=== PATIENT | male | born 1950 | race Caucasian/White ===

== ENCOUNTER 2016-05-15 21:05 | Inpatient (IN) | payer MEDICARE, OTHER ==
[~2016-05-15] VITALS: Ht 182.9 cm; Wt 131.5 kg
[2016-05-15] MEDS: HumaLOG INSULIN (NovoLOG) PER UNIT SC SCH (02:30)
[2016-05-15 22:00] LABS: BASO # 0.2 K/mm3 (0.0-0.2); BASO % 1.3 % (0.0-1.0); EOS # 0.1 K/mm3 (0.0-0.50); EOS % 0.8 % (0.0-3.0); LARGE UNSTAINED CELL # 0.2 K/mm3 (0.0-0.4); LARGE UNSTAINED CELL % 1.2 % (0.0-4.0); LYMPH # 1.4 K/mm3 (1.5-4.5); LYMPH % 8.7 % (24.0-44.0); MEAN CORPUSCULAR HEMOGLOBIN 30.2 pg (27.0-33.0); MEAN CORPUSCULAR HGB CONC 34.8 g/dl (32.0-36.5); MEAN CORPUSCULAR VOLUME 86.8 fl (80.0-96.0); NEUTROPHILS # 11.5 K/mm3 (1.8-7.7); NEUTROPHILS % 80.9 % (36.0-66.0); PLATELET COUNT, AUTOMATED 260 k/mm3 (150-450); RED CELL DISTRIBUTION WIDTH 13.1 % (11.5-14.5); WHITE BLOOD COUNT 14.2 K/mm3 (4.0-10.0)
[2016-05-15] MEDS ORDERED: MORPHINE 4 MG/ML 1ML SYRINGE As Ordered ONE ×2 (22:06→22:51)
[2016-05-15] MEDS ORDERED: ONDANSETRON 4MG/2ML VIAL (J2405) As Ordered ONE (22:06)
[2016-05-15] MEDS ORDERED: ACETAMINOPHEN 325 MG TAB As Ordered ONE (22:07)
[2016-05-15 22:19] LABS: ALBUMIN 3.8 GM/DL (3.2-5.2); ALBUMIN/GLOBULIN RATIO 1.15 (1.00-1.93); ALKALINE PHOSPHATASE 91 U/L (45-117); ALT/SGPT 21 U/L (12-78); ANION GAP 9 MEQ/L (8-16); AST/SGOT 13 U/L (15-37); BILIRUBIN,DIRECT 0.2 MG/DL (0.0-0.2); BILIRUBIN,TOTAL 0.7 MG/DL (0.2-1.0); BLOOD UREA NITROGEN 16 MG/DL (7-18); CALCIUM LEVEL 9.1 MG/DL (8.8-10.2); CARBON DIOXIDE LEVEL 28 MEQ/L (21-32); CHLORIDE LEVEL 101 MEQ/L (98-107); CREATININE FOR GFR 1.11 MG/DL (0.70-1.30); GLOMERULAR FILTRATION RATE > 60.0 (>49); GLUCOSE, FASTING 193 MG/DL (80-110); POTASSIUM SERUM 4.2 MEQ/L (3.5-5.1); SODIUM LEVEL 138 MEQ/L (136-145); TOTAL PROTEIN 7.1 GM/DL (6.4-8.2)
[2016-05-15] MEDS ORDERED: cefTRIAXone SOD 1 GM VIAL (J0696) As Ordered ONE (23:10)
[2016-05-15] MEDS ORDERED: QUIN40TA5 PO (23:44)
[2016-05-15] MEDS ORDERED: BYST10TA2 PO (23:44)
[2016-05-15] MEDS ORDERED: ASPI325T PO ×2 (23:44)
[2016-05-15] MEDS ORDERED: SITA50TAB PO (23:44)
[2016-05-15] MEDS ORDERED: ISOS30TA4 PO (23:44)
[2016-05-16] MEDS ORDERED: ONDANSETRON 4MG/2ML VIAL (J2405) IV PRN (00:15)
[2016-05-16] MEDS ORDERED: PERCOCET 5MG/325MG TAB PO PRN ×2 (00:15)
[2016-05-16] MEDS ORDERED: BISACODYL 5 MG TAB PO PRN (00:15)
[2016-05-16] MEDS ORDERED: GLUCOSE 4 GM CHEW TABLET PO PRN (00:45)
[2016-05-16] MEDS ORDERED: GLUCAGON FOR INJ 1 MG VIAL (J1610) SC PRN (00:45)
[2016-05-16] MEDS ORDERED: DEXTROSE 50% 50 ML SYRINGE IV PRN (00:45)
[2016-05-16] MEDS ORDERED: VANCOMYCIN HCL 1,000 MG, VIAL MATE ADAPTER 1 EACH in D5W 250 ML IV SCH (02:00)
[2016-05-16] MEDS ORDERED: VANCOMYCIN 1000 MG/20 ML VIAL (J3370) As Ordered ONE (02:44)
--- NOTE | 2016-05-16 03:20 | PHACANCOPD ---
PHARMACY VANCOMYCIN DOSING Pt Demographics Demographics Patient Age:66 , Weight: , Gender: male Adjusted Body Weight Date: 05/16/16, Adjusted Body Weight: [99.2] Kg Vancomycin Vancomycin indication: RT HEEL ABCESS Vancomycin Target Ranges: 15-20 mcg/ml Vancomycin Load Y/N: No Load Dose Date Time Vancomycin Load Dose: Date: Time: Vancomycin Dose Date: 05/16/16. Current Vancomycin Dose: [1 GM IV Q12H] Intermittent Dosing?: No Labs Labs Laboratory Tests 05/15/16 21:41 Red Blood Count 5.00, Mean Corpuscular Volume 86.8, Mean Corpuscular Hemoglobin 30.2, Mean Corpuscular Hemoglobin Concent 34.8, Red Cell Distribution Width 13.1 , Neutrophils (%) (Auto) 80.9 H, Lymphocytes (%) (Auto) 8.7 L, Monocytes (%) ( Auto) 7.0 H, Eosinophils (%) (Auto) 0.8, Basophils (%) (Auto) 1.3 H, Neutrophils # (Auto) 11.5 H, Lymphocytes # (Auto) 1.4 L, Monocytes # (Auto) 1.0 H, Eosinophils # (Auto) 0.1, Basophils # (Auto) 0.2 Micro Microbiology 05/15/16 Blood Culture, Received Pending 05/15/16 Blood Culture, Received Pending 05/15/16 Wound Culture, Received Pending Creatinine Clearance Date:05/16/16. Creatinine Clearance: [89.4]CALCULATED. Pending Labs VANCOMYCIN TROUGH ORDERED FOR 05/17@1900 Assessment and Plan Maintaining Current Dose?: Yes Reason for dose change: No Dose Change Pharmacist Note Pharmacist Note Date: 05/16/16. Pharmacist note:Treating rt heel abcess :ceftazidime 1 gm iv q8h, Vancomycin 1 GM@02,then 1 GM IV Q12H@08:trough ordered for 1900 05/17:will continue to monitor [facility] May 16, 2016 03:20
--- NOTE | 2016-05-16 04:37 | EDDOCDS ---
Nurse's Notes [facility] Name: Jose Lei Age: 66 yrs Sex: Male : 1950 Arrival Date: 05/15/2016 Time: 21:05 Bed Admit Hold Private MD: Malik Felix M.D. Diagnosis: Cutaneous abscess of right foot Presentation: 05/15 21:08 Presenting complaint: Patient states: that on Saturday he noticed some discoloration to ms18 his R heel. Today, pt presents with large discolored area on his heel, red and swollen around the discolored tissue. Hx diabetic. Adult Sepsis Screening: The patient does not have new or worsening altered mentation. Patient's respiratory rate is less than 22. Systolic blood pressure is greater than 100. Patient has a qSOFA score of 0- Negative Sepsis Screen. Suicide/Homicide risk assessment- the patient denies having any suicidal and/or homicidal ideations and does not present with any other emotional, behavioral or mental health complaints. Status: Patient is not a aircraft servicer or dependent. Transition of care: patient was not received from another setting of care. 21:08 Acuity: JESSICA Level 3 ms18 21:08 Method Of Arrival: Walkin/Carried/Asstd ms18 Triage Assessment: 21:13 General: Appears in no apparent distress, comfortable, Behavior is appropriate for age, ms18 cooperative. Pain: Location: lateral side of right heel and medial aspect of right heel Pain currently is 9 out of 10 on a pain scale. Neurological: Level of Consciousness is awake, alert, obeys commands, Oriented to person, place, time. Respiratory: No deficits noted. Derm: Skin is pink, warm & dry. Historical: - Allergies: no known allergies; - Home Meds: 1. Januvia 50 mg oral tab once daily 2. isosorbide mononitrate 30 mg Oral Tb24 1 tab once daily 3. quinapril 40 mg Oral tab 1 tab once daily 4. Bystolic 10 mg oral tab 1 tab once daily 5. aspirin 325 mg Oral tab 1 tab once daily - PMHx: Diabetes - NIDDM: controlled; Hypertension; [place]; - PSHx: Cardiac stents; Hernia repair; - Social history: Smoking status: Patient states was never smoker of tobacco. No barriers to communication noted, The patient speaks fluent Niuean. - Family history: Not pertinent. - : The pt / caregiver states he / she is not on anticoagulants. Home medication list is obtained from the patient. - Exposure Risk Screening:: None identified. Screenin:48 Screening information is obtained from the patient. Fall risk: No risks identified. tm5 Assistance ADL's: requires no assistance with activities of daily living. Abuse/DV Screen: The patient / caregiver reports he/she is: not in a situation that causes fear, pain or injury. Nutritional screening: No deficits noted. Advance Directives: There is no active DNR order. home support is adequate. Assessment: 21:48 General: Appears in no apparent distress, Behavior is appropriate for age, cooperative. tm5 Pain: Location: lateral side of right heel and medial aspect of right heel Pain currently is 9 out of 10 on a pain scale. Quality of pain is described as throbbing. Neurological: Level of Consciousness is awake, alert, Oriented to person, place, time. Respiratory: Airway is patent Respiratory effort is even, unlabored, Respiratory pattern is regular, symmetrical. Derm: Abscess located on lateral side of right heel and medial aspect of right heel is golf ball sized, has no drainage, is hot to touch, is raised, abscess is purple/bruise in color, no open areas, no drainage. 22:30 Reassessment: Patient appears in no apparent distress at this time. Patient states tm5 feeling better. Patient states symptoms have improved. per pt his pain is better at this time, resting on stretcher, no further complaints. 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 tm5 05/16 00:25 General: Appears in no apparent distress, comfortable, Behavior is appropriate for age, jmb cooperative, Patient laying on stretcher, appears comfortable. Patient voices no complaints at this time. . Neurological: Level of Consciousness is awake, alert, obeys commands, Oriented to person, place, time. Respiratory: Airway is patent Respiratory effort is even, unlabored, Respiratory pattern is regular, symmetrical. 01:19 General: Appears in no apparent distress, comfortable, Behavior is appropriate for age, jmb cooperative. Neurological: Level of Consciousness is awake, alert, obeys commands, Oriented to person, place, time. Respiratory: Airway is patent Respiratory effort is even, unlabored, Respiratory pattern is regular, symmetrical. 01:22 Reassessment: Patient appears in no apparent distress at this time. pt resting with tm5 eyes closed, resp easy, appears to be sleeping at this time . 02:45 General: Appears in no apparent distress, comfortable, Behavior is appropriate for age, nn1 cooperative. Respiratory: Airway is patent Respiratory effort is even, unlabored, Respiratory pattern is regular, symmetrical. Derm: Skin is pink, warm & dry. 03:17 General: Patient able to ambulate without assistance. Vancomycin infusing per admission nn1 orders. . 03:37 General: Appears in no apparent distress, comfortable, Behavior is appropriate for age, nn1 cooperative. Neurological: Level of Consciousness is awake, alert. Respiratory: Airway is patent Respiratory effort is even, unlabored, Respiratory pattern is regular, symmetrical. Derm: Skin is pink, warm & dry. 04:26 General: Admission nurse at bedside, patient up to peds in wheelchair. Neurological: nn1 Level of Consciousness is awake, alert, obeys commands, Oriented to person, place, time. Respiratory: Airway is patent Respiratory effort is even, unlabored, Respiratory pattern is regular, symmetrical. Derm: Skin is pink, warm & dry. Vital Signs: 05/15 21:06 BP 183 / 96; Pulse 93; Resp 18 S; Temp 100.1(O); Pulse Ox 95% on R/A; Weight 131.54 kg dd6 (R); Height 6 ft. 0 in. (182.88 cm) (R); 22:31 BP 178 / 92; Pulse 90; Resp 18; Pulse Ox 98% on R/A; Pain 7/10; tm5 22:54 Temp 99.3(O); tm5 23:15 BP 168 / 89; Pulse 88; Resp 20; Pulse Ox 98% on R/A; Pain 4/10; tm5 05/16 00:30 BP 162 / 78; Pulse 72; Resp 20 S; Pulse Ox 97% on R/A; Pain 2/10; tm5 02:59 BP 111 / 68; Pulse 58; Resp 18; Temp 97.3(O); Pulse Ox 95% on R/A; Pain 0/10; nn1 04:27 BP 117 / 83; Pulse 60; Resp 18; Pulse Ox 97% on R/A; Pain 0/10; nn1 05/15 21:06 Body Mass Index 39.33 (131.54 kg, 182.88 cm) dd6 Vitals: 05/15 21:06 Log In Time: May 15, 2016 at 21:04. dd6 ED Course: 21:06 Patient visited by Cosme Key PCA. dd6 21:06 Malik Felix is Private Physician. dd6 21:06 Patient moved to Waiting dd6 21:07 Patient moved to Pre RCE dd6 21:10 Triage Initiated ms18 21:14 Patient moved to Triage 3 ms18 21:18 Patient moved to Triage 1 ms18 21:25 [facility] ke 21:25 Patient visited by Merrill Rodriguez FNP. ke 21:25 Patient visited by Merrill Rodriguez FNP. ke 21:27 Patient moved to I [facility] 21:43 Liver Profile Sent. tm5 21:43 BMP Sent. tm5 21:43 CBC with Diff Sent. tm5 21:47 -Blood Culture Sent. tm5 21:48 Awaiting ED physician evaluation. tm5 21:48 The patient / caregiver is instructed regarding the plan of care and ED course. tm5 21:48 Inserted saline lock: 18 gauge in right antecubital area and blood collected. The tm5 patient tolerated the procedure well. Labs/Blood culture drawn. 21:53 BLOOD CULTURES Sent. tm5 21:54 Patient visited by Alexia Mcdaniel RN. tm5 21:54 Patient moved to radiology. tm5 22:00 Patient visited by Alexia Mcdaniel RN. tm5 22:00 Patient moved back from radiology. tm5 22:14 [facility] Payment Agreement was scanned into [employer] and attached to record. gjb 22:24 Patient visited by Merrill Rodriguez FNP. ke 22:30 Patient visited by Alexia Mcdaniel RN. tm5 23:06 Patient visited by Alexia Mcdaniel RN. tm5 23:06 Visited by SHANELLE Rodriguez. tm5 23:14 Wound Culture - Most Extremities Sent. tm5 23:18 Celina Salazar is Hospitalizing Provider. ke 23:39 Patient visited by Alexia Mcdaniel RN. tm5 23:39 Visited by Hospitalist at bedside for admission eval. tm5 23:58 Patient visited by Alexia Mcdaniel RN. tm5 05/16 00:00 Patient visited by Alexia Mcdaniel RN. tm5 00:01 Dressings: Kerlix X 1; 4X4s X 4; applied to lateral side of right heel and medial tm5 aspect of right heel. 01:19 Patient visited by Bridger Evans RN. jmb 01:43 Patient moved to 18 jmb 01:51 Patient visited by Alexia Mcdaniel RN. tm5 01:51 Report given to Gisela HERNANDEZ. tm5 02:34 Patient moved to Admit Hold sls1 03:19 No procedures done that require assistance. nn1 04:28 Patient visited by Jeffrey Johnson RN. nn1 Administered Medications: 05/15 22:02 Drug: NS 0.9% 1000 ml [sodium chloride 0.9 % intravenous solution] Route: IV; Rate: 100 tm5 mL/hr; Site: right antecubital; 22:12 Drug: Ondansetron 4 mg [ondansetron HCl 2 mg/mL intravenous solution (2 mL)] Route: tm5 IVP; Site: right antecubital; 22:31 Follow up: Response: Nausea is decreased; No Adverse Reaction tm5 22:12 Drug: morphine 4 mg [morphine 4 mg/mL intravenous cartridge (1 mL)] Route: IVP; Site: tm5 right antecubital; 22:31 Follow up: BP 178 / 92; Pulse 90 bpm; Resp 18 bpm; Pulse Ox 98% RA; Pain 7/10 Adult tm5 22:31 Follow up: Response: No Adverse Reaction; Pain is decreased tm5 22:12 Drug: Acetaminophen 975 mg [acetaminophen 325 mg tablet (3 tabs)] Route: PO; tm5 22:54 Follow up: Temp 99.3 Oral; Response: Temperature is decreased tm5 22:53 Drug: morphine 4 mg [morphine 4 mg/mL intravenous cartridge (1 mL)] Route: IVP; Site: tm5 right antecubital; 23:15 Follow up: BP 168 / 89; Pulse 88 bpm; Resp 20 bpm; Pulse Ox 98% RA; Pain 4/10 Adult; tm5 Response: No Adverse Reaction; Pain is decreased 23:14 Drug: cefTRIAXone 1 grams [ceftriaxone 1 gram solution for injection] Route: IVPB; tm5 Infused Over: 30 mins; Site: right antecubital; 23:45 Follow up: Response: No Adverse Reaction; IV Status: Completed infusion; IV Intake: [id number] Point of Care Testing: Blood Glucose: 05/16 02:35 Blood Glucose: 168 mg/dL; nn1 Ranges: Intake: 05/15 23:45 IV: 50.00ml; Total: 50.00ml. tm5 Order Results: Lab Order: CBC with Diff; SPEC'M 05/15/16 21:41 Test: WHITE BLOOD COUNT; Value: 14.2; Range: 4.0-10.0; Abnormal: Above high normal; Units: K/mm3; Status: F Test: RED BLOOD COUNT; Value: 5.00; Range: 4.30-6.10; Units: M/mm3; Status: F Test: HEMOGLOBIN; Value: 15.1; Range: 14.0-18.0; Units: g/dl; Status: F Test: HEMATOCRIT; Value: 43.4; Range: 42.0-52.0; Units: %; Status: F Test: MEAN CORPUSCULAR VOLUME; Value: 86.8; Range: 80.0-96.0; Units: fl; Status: F Test: MEAN CORPUSCULAR HEMOGLOBIN; Value: 30.2; Range: 27.0-33.0; Units: pg; Status: F Test: MEAN CORPUSCULAR HGB CONC; Value: 34.8; Range: 32.0-36.5; Units: g/dl; Status: F Test: RED CELL DISTRIBUTION WIDTH; Value: 13.1; Range: 11.5-14.5; Units: %; Status: F Test: PLATELET COUNT, AUTOMATED; Value: 260; Range: 150-450; Units: k/mm3; Status: F Test: NEUTROPHILS %; Value: 80.9; Range: 36.0-66.0; Abnormal: Above high normal; Units: %; Status: F Test: LYMPH %; Value: 8.7; Range: 24.0-44.0; Abnormal: Below low normal; Units: %; Status: F Test: MONO %; Value: 7.0; Range: 0.0-5.0; Abnormal: Above high normal; Units: %; Status: F Test: EOS %; Value: 0.8; Range: 0.0-3.0; Units: %; Status: F Test: BASO %; Value: 1.3; Range: 0.0-1.0; Abnormal: Above high normal; Units: %; Status: F Test: LARGE UNSTAINED CELL %; Value: 1.2; Range: 0.0-4.0; Units: %; Status: F Test: NEUTROPHILS #; Value: 11.5; Range: 1.8-7.7; Abnormal: Above high normal; Units: K/mm3; Status: F Test: LYMPH #; Value: 1.4; Range: 1.5-4.5; Abnormal: Below low normal; Units: K/mm3; Status: F Test: MONO #; Value: 1.0; Range: 0.0-0.8; Abnormal: Above high normal; Units: K/mm3; Status: F Test: EOS #; Value: 0.1; Range: 0.0-0.50; Units: K/mm3; Status: F Test: BASO #; Value: 0.2; Range: 0.0-0.2; Units: K/mm3; Status: F Test: LARGE UNSTAINED CELL #; Value: 0.2; Range: 0.0-0.4; Units: K/mm3; Status: F Lab Order: [facility]; [facility] 05/15/16 21:41 Test: GLUCOSE, FASTING; Value: 193; Range: 80-110; Abnormal: Above high normal; Units: MG/DL; Status: F Test: BLOOD UREA NITROGEN; Value: 16; Range: 7-18; Units: MG/DL; Status: F Test: CREATININE FOR GFR; Value: 1.11; Range: 0.70-1.30; Units: MG/DL; Status: F Test: GLOMERULAR FILTRATION RATE; Value: > 60.0; Range: >49; Status: F Test: SODIUM LEVEL; Value: 138; Range: 136-145; Units: MEQ/L; Status: F Test: POTASSIUM SERUM; Value: 4.2; Range: 3.5-5.1; Units: MEQ/L; Status: F Test: CHLORIDE LEVEL; Value: 101; Range: 98-107; Units: MEQ/L; Status: F Test: CARBON DIOXIDE LEVEL; Value: 28; Range: 21-32; Units: MEQ/L; Status: F Test: ANION GAP; Value: 9; Range: 8-16; Units: MEQ/L; Status: F Test: CALCIUM LEVEL; Value: 9.1; Range: 8.8-10.2; Units: MG/DL; Status: F Test Note: ; Units are mL/min/1.73 m2 Chronic Kidney Disease Staging per NKF: Stage I & II GFR >=60 Normal to Mildly Decreased Stage III GFR 30-59 Moderately Decreased Stage IV GFR 15-29 Severely Decreased Stage V GFR <15 Very Little GFR Left ESRD GFR <15 on ELECTRIC NEEDLE SPECIALIST Lab Order: Liver Profile; SPEC05/15/16 21:41 Test: AST/SGOT; Value: 13; Range: 15-37; Abnormal: Below low normal; Units: U/L; Status: F Test: ALT/SGPT; Value: 21; Range: 12-78; Units: U/L; Status: F Test: ALKALINE PHOSPHATASE; Value: 91; Range: 45-117; Units: U/L; Status: F Test: BILIRUBIN,TOTAL; Value: 0.7; Range: 0.2-1.0; Units: MG/DL; Status: F Test: BILIRUBIN,DIRECT; Value: 0.2; Range: 0.0-0.2; Units: MG/DL; Status: F Test: TOTAL PROTEIN; Value: 7.1; Range: 6.4-8.2; Units: GM/DL; Status: F Test: ALBUMIN; Value: 3.8; Range: 3.2-5.2; Units: GM/DL; Status: F Test: ALBUMIN/GLOBULIN RATIO; Value: 1.15; Range: 1.00-1.93; Status: F Lab Order: Fingerstick Blood Sugar; SPEC'05/16/16 02:26 Test: BEDSIDE GLUCOSE; Value: 165; Range: 80-115; Abnormal: Above high normal; Units: MG/DL; Status: F Outcome: 23:18 Decision to Hospitalize by Provider. 05/16 03:18 Admission hand-off: Report called to VALDEMAR Stoddard. nn1 03:19 Discharge Assessment: Patient awake, alert and oriented x 3. No cognitive and/or nn1 functional deficits noted. Patient verbalized understanding of disposition instructions. patient administered narcotics - yes. Patient was admitted to the hospital or transferred to another facility. The following High Risk Discharge criteria are identified: None. Admitted to Pediatrics accompanied by tech, via stretcher, with chart. Condition: stable. No special radiology studies were completed. Property :Personal belongings accompany Pt. 04:36 Patient left the ED. nn1 Signatures: Merrill Rodriguez, BREAKDOWN PERSON BREAKDOWN PERSON Cosme Vu PCA VALIDATION ARCHITECT dd6 Josefina Nunes, RN RN sls1 Princess Hoffmann,RN RN cj Bridger EvansRN RN Esther ToureRN RN ms18 Jeffrey JohnsonRN RN nn1 Armida Denny Tonya,RN RN tm5 MTDD
--- NOTE | 2016-05-16 04:37 | EDDOCDS ---
Physician Documentation [facility] Name: Jose Lei Age: 66 yrs Sex: Male : 1950 Arrival Date: 05/15/2016 Time: 21:05 Bed Admit Hold Private MD: Malik Felix M.D. Disposition: 05/15/16 23:18 Hospitalization ordered by Celina Salazar for Inpatient Admission. Preliminary diagnosis is Cutaneous abscess of right foot. - Bed requested for M PED. - Status is Inpatient Admission. nn1 - Condition is Stable. - Problem is new. - Symptoms are unchanged. Historical: - Allergies: no known allergies; - Home Meds: 1. Januvia 50 mg oral tab once daily 2. isosorbide mononitrate 30 mg Oral Tb24 1 tab once daily 3. quinapril 40 mg Oral tab 1 tab once daily 4. Bystolic 10 mg oral tab 1 tab once daily 5. aspirin 325 mg Oral tab 1 tab once daily - PMHx: Diabetes - NIDDM: controlled; Hypertension; [place]; - PSHx: Cardiac stents; Hernia repair; - Social history: Smoking status: Patient states was never smoker of tobacco. No barriers to communication noted, The patient speaks fluent Sami. - Family history: Not pertinent. - : The pt / caregiver states he / she is not on anticoagulants. Home medication list is obtained from the patient. - Exposure Risk Screening:: None identified. Vital Signs: 05/15 21:06 BP 183 / 96; Pulse 93; Resp 18 S; Temp 100.1(O); Pulse Ox 95% on R/A; Weight 131.54 kg dd6 / 290 lbs (R); Height 6 ft. 0 in. (182.88 cm) (R); 22:31 BP 178 / 92; Pulse 90; Resp 18; Pulse Ox 98% on R/A; Pain 7/10; tm5 22:54 Temp 99.3(O); tm5 23:15 BP 168 / 89; Pulse 88; Resp 20; Pulse Ox 98% on R/A; Pain 4/10; tm5 05/16 00:30 BP 162 / 78; Pulse 72; Resp 20 S; Pulse Ox 97% on R/A; Pain 2/10; tm5 02:59 BP 111 / 68; Pulse 58; Resp 18; Temp 97.3(O); Pulse Ox 95% on R/A; Pain 0/10; nn1 04:27 BP 117 / 83; Pulse 60; Resp 18; Pulse Ox 97% on R/A; Pain 0/10; nn1 05/15 21:06 Body Mass Index 39.33 (131.54 kg, 182.88 cm) dd6 MDM: 05/15 21:31 IV Saline Lock ordered. ke 21:31 -Blood Culture (Adults Only), peripheral from different site, or from device/port/PICC ke etc. if present ordered. 21:31 NS 0.9% 1000 ml IV at 100 mL/hr continuous ordered. ke 21:32 Foot, Complete Ordered. EDMS 21:32 CBC with Diff Ordered. EDMS 21:32 BMP Ordered. EDMS 21:32 Liver Profile Ordered. EDMS 21:32 -Blood Culture Ordered. EDMS 21:35 -Blood Culture (Adults Only), peripheral from different site, or from device/port/PICC ajs etc. if present complete. 21:39 BLOOD CULTURES Ordered. EDMS 22:04 Ondansetron 4 mg IVP once ordered. ke 22:05 morphine 4 mg IVP every 30 minutes; Document pain score/vitals after each dose (Hold if ke SBP < 90mmHg) x2 ordered. 22:05 Acetaminophen Tablet 975 mg PO once ordered. ke 22:05 CBC with Diff Reviewed. ke 22:14 [facility] Payment Agreement was scanned into [employer] and attached to record. gjb 22:15 Financial registration complete. gjb 22:48 BMP Reviewed. ke 22:48 Liver Profile Reviewed. ke 23:08 cefTRIAXone 1 grams IVPB once over 30 mins; dilute in 50mL of NS or D5W ordered. ke 23:09 Wound Culture - Most Extremities Ordered. EDMS 23:13 BED REQUEST+ADM ordered. EDMS 01 00:13 PHYSICAL THERAPY EVAL & TREAT ordered. EDMS 00:14 Admission / Observation Status ordered. EDMS 00:14 CONSISTENT CARBOHYDRATES ordered. EDMS 01:55 MRI FOOT WITHOUT CONTRAST Ordered. EDMS 02:34 Fingerstick Blood Sugar Ordered. EDMS Point of Care Testing: Blood Glucose: 02:35 Blood Glucose: 168 mg/dL; nn1 Ranges: Administered Medications: 05/15 22:02 Drug: NS 0.9% 1000 ml [sodium chloride 0.9 % intravenous solution] Route: IV; Rate: 100 tm5 mL/hr; Site: right antecubital; 22:12 Drug: Ondansetron 4 mg [ondansetron HCl 2 mg/mL intravenous solution (2 mL)] Route: tm5 IVP; Site: right antecubital; 22:31 Follow up: Response: Nausea is decreased; No Adverse Reaction tm5 22:12 Drug: morphine 4 mg [morphine 4 mg/mL intravenous cartridge (1 mL)] Route: IVP; Site: tm5 right antecubital; 22:31 Follow up: BP 178 / 92; Pulse 90 bpm; Resp 18 bpm; Pulse Ox 98% RA; Pain 7/10 Adult tm5 22:31 Follow up: Response: No Adverse Reaction; Pain is decreased tm5 22:12 Drug: Acetaminophen 975 mg [acetaminophen 325 mg tablet (3 tabs)] Route: PO; tm5 22:54 Follow up: Temp 99.3 Oral; Response: Temperature is decreased tm5 22:53 Drug: morphine 4 mg [morphine 4 mg/mL intravenous cartridge (1 mL)] Route: IVP; Site: tm5 right antecubital; 23:15 Follow up: BP 168 / 89; Pulse 88 bpm; Resp 20 bpm; Pulse Ox 98% RA; Pain 4/10 Adult; tm5 Response: No Adverse Reaction; Pain is decreased 23:14 Drug: cefTRIAXone 1 grams [ceftriaxone 1 gram solution for injection] Route: IVPB; tm5 Infused Over: 30 mins; Site: right antecubital; 23:45 Follow up: Response: No Adverse Reaction; IV Status: Completed infusion; IV Intake: [id number] Signatures: Dispatcher [employer] Rosi Lopez RN RN daMerrill Rivas, PROCESS ARTIST PROCESS ARTIST Patricia Shafer Mallory, RN RN ms18 Jeffrey Johnson RN RN tra1 Armida Denny Tonya, RN RN tm5 The chart was reviewed and I authenticate all verbal orders and agree with the evaluation and treatment provided.Attachments: 22:14 [facility] Payment Agreement gjloan MTDD
[2016-05-16 04:40] VITALS: BP 116/57
--- NOTE | 2016-05-16 05:28 | HPE ---
DATE OF ADMISSION: 05/16/2016 PRIMARY CARE PROVIDER: Dr. Malik Felix CHIEF COMPLAINT: Pain, swelling, and blister of the right heel. PAST MEDICAL HISTORY: 1. Diabetes. 2. Hypertension. 3. Hyperlipidemia. 4. Coronary artery disease with history of myocardial infarction (AK) and cardiac stents in the past. 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 He recently bought new shoes and plus some in-soles within the shoes which has some projections from the in-sole and has been using that for about three days and then for two days he noticed some discoloration of his right heel and this morning there was a large blister with discolored area of the heel and it was red an extremely painful, so he came to the emergency room for evaluation. In the emergency department (ED), he was found to have right heel abscess. The abscess was incised and drained in the emergency room. Surgery was consulted by ED physician. Patient was given ceftriaxone and then the hospitalist service was consulted for admission. The patient is being admitted to the hospitalist service for right heel abscess. PAST SURGICAL HISTORY: Hernia surgeries, inguinal and abdominal wall hernia. ALLERGIES: No known drug allergies. HOME MEDICATIONS: - aspirin 325 mg daily - Tylenol 650 mg by mouth three times a day as needed for pain - isosorbide mononitrate 30 mg by mouth daily - Bystolic 10 mg by mouth daily - quinapril 40 mg at bedtime - Januvia 50 mg by mouth daily SOCIAL HISTORY: Patient has never smoked, does not abuse alcohol or recreational drugs. FAMILY HISTORY: Not pertinent. REVIEW OF SYSTEMS: All 10-point review of systems are negative except as mentioned in history of present illness (HPI). PHYSICAL EXAMINATION: VITAL SIGNS: Blood pressure 168/89, pulse 88, respiratory rate 20, temperature 100.1, pulse oximetry 98% in room air. GENERAL: Patient is awake, alert, and oriented times three, lying down in bed in no acute distress. HEENT: Normocephalic, atraumatic. Moist mucous membranes. Anicteric eyes. CHEST: Clear to auscultation. CARDIOVASCULAR: S1, S2 regular. No rub, murmur, or gallop. ABDOMEN: Obese, soft, nontender. Bowel sounds present. EXTREMITIES: No edema. Both of the feet have extremely dry skin and very thick skin of the soles and the heels as well as the sides. LABORATORY DATA: WBC 14.2, hemoglobin 15, platelets 260. Sodium 138, potassium 4.2, chloride 101, bicarbonate 28, BUN 16, creatinine 1.1, glucose 193, calcium 9.1. Liver function tests are normal. Foot x-ray is pending. ASSESSMENT AND PLAN: 1. This is a 66-year-old male admitted for right heel abscess. Patient's abscess has been incised and drained. Cultures are pending. Blood cultures have also been ordered. Patient is started on ceftazidime and vancomycin to cover for both Pseudomonas and methicillin-resistant Staphylococcus aureus (MRSA). Patient may need MRI of the foot. Surgery to evaluate the patient. Patient may also benefit from podiatry evaluation. 2. Diabetes. Will continue with home medications, Januvia and also will order subcutaneous insulin with meals. 3. Hypertension. We will continue with nebivolol and quinapril. 4. Coronary artery disease. We will continue with beta katherine as well as isosorbide mononitrate. Patient is not on statin as he cannot tolerate it. 5. Deep vein thrombosis (DVT) prophylaxis has been ordered.
[2016-05-16] MEDS: cefTAZidime 1 GM in D5W MINI-BAG PLUS 100 ML IV SCH ×3 (06:51→21:39)
[2016-05-16 08:00] VITALS: BP 128/57
--- NOTE | 2016-05-16 08:18 | REP ---
Clinical: Pain and swelling rule out osteomyelitis. Technique: AP, lateral, bilateral oblique views of the right foot. Findings: Osseous structures are intact without acute fracture or dislocation. Mild age-related changes are noted. No osseous destruction or periosteal reaction is appreciated to suggest osteomyelitis by radiographic evaluation. No subcutaneous emphysema or radiodense foreign body. Impression: Mild age-related degenerative changes. No radiographic evidence for osteomyelitis. Signed by Andrew Olivera MD 05/16/2016 08:10 A
[2016-05-16] MEDS ORDERED: NEBIVOLOL 5 MG TAB (BYSTOLIC) PO SCH (09:00)
[2016-05-16] MEDS ORDERED: ISOSORBIDE MON. (IMDUR) 30 MG XR TAB PO SCH (09:00)
[2016-05-16] MEDS: VANCOMYCIN HCL 1,000 MG, VIAL MATE ADAPTER 1 EACH in D5W 250 ML IV SCH ×2 (09:20→20:32)
[2016-05-16] MEDS: ENOXAPARIN 40 MG/0.4 ML SYRINGE (J1650) SC SCH (09:20)
[2016-05-16] MEDS: SITagliptin 50 MG TAB (JANUVIA) PO SCH (09:24)
[2016-05-16] MEDS: SENOKOT S TAB PO SCH ×2 (09:24→21:40)
[2016-05-16] MEDS: ASPIRIN 325 MG TAB PO SCH (09:24)
[2016-05-16] MEDS: HumaLOG INSULIN (NovoLOG) PER UNIT SC SCH ×4 (09:25→21:00)
[2016-05-16 11:57] LABS: MEAN CORPUSCULAR HEMOGLOBIN 30.4 pg (27.0-33.0); MEAN CORPUSCULAR VOLUME 89.4 fl (80.0-96.0); RED CELL DISTRIBUTION WIDTH 12.3 % (11.5-14.5); WHITE BLOOD COUNT 9.8 K/mm3 (4.0-10.0)
[2016-05-16 12:20] LABS: ANION GAP 9 MEQ/L (8-16); BLOOD UREA NITROGEN 13 MG/DL (7-18); CALCIUM LEVEL 8.8 MG/DL (8.8-10.2); CARBON DIOXIDE LEVEL 28 MEQ/L (21-32); CHLORIDE LEVEL 102 MEQ/L (98-107); CREATININE FOR GFR 1.02 MG/DL (0.70-1.30); GLOMERULAR FILTRATION RATE > 60.0 (>49); GLUCOSE, FASTING 192 MG/DL (80-110); POTASSIUM SERUM 4.3 MEQ/L (3.5-5.1); SODIUM LEVEL 139 MEQ/L (136-145)
--- NOTE | 2016-05-16 15:02 | CR ---
DATE OF CONSULTATION: 05/16/2016 CONSULTATION REPORT FOR: Hospitalist service. REASON FOR CONSULTATION: Regarding possible right heel abscess. HISTORY OF PRESENT ILLNESS: Mr. Lei is a 66-year-old gentleman, diabetic, moderately obese, who presented himself to the emergency department last night with complaints of swelling on his right heel. He thinks it is probably from the ill-fitting prosthetic shoes that he is wearing. The swelling has been ongoing since over the weekend. It had been worsening with increasing pain, also having subjective fever. Thus, he presented to the emergency department (ED). In the emergency room, he was seen and worked up. He was being suspected to have an abscess. An x-ray was taken, not really showing much soft tissue swelling or evidence for osteomyelitis. I was contacted by the emergency room provider recommending incision and drainage of the area which was done. There are no reports on what came up but I suspect this will be serous. He was subsequently admitted under the hospitalist service, currently on antibiotics for a diabetic foot infection. ALLERGIES: No known drug allergies. MEDICATIONS: During this hospitalization include: - vancomycin 1 gram every 12 hours - ceftazidime 1 gram every eight hours PAST MEDICAL HISTORY: Reviewed. None pertinent. PAST SURGICAL HISTORY: Reviewed. None pertinent. REVIEW OF SYSTEMS: He was feeling well up until the weekend when he started having pain and swelling on his right heel. He reports subjective fevers. No ongoing weight loss. Denies any problems with vision or hearing. Denies any shortness of breath. Denies any chest pains. Denies any abdominal complaints, diarrhea, or constipation. He is diabetic. He denies polydipsia, polyphagia, or polyuria. He denies any claudication when walking. He denies any swelling on his leg. He denies any kidney problems. PHYSICAL EXAMINATION: The patient was seen. Vital signs on arrival last night at 2106, blood pressure 183/96, pulse rate of 93, respiratory rate of 18, temperature of 100.1, pulse oximetry 95% on room air. Weight is 131 kg, height is 182 cm, giving him a body mass index (BMI) of 39.3. Vitals this morning shows he is afebrile, temperature 99.2, pulse rate 59, respiratory rate of 18, blood pressure 128/57, 96% on room air. The patient was seen laying on the bed. He reports feeling much better since the incision and drainage was done. Examination of bilateral extremities show good pulses, mild edema on both extremities. The girth of both extremities looks the same. This is a patient able to rotate his ankles. He has a thickened callus and dry skin on the plantar area on both feet. Over the right heel, there is about a 5 cm area where there is a ruptured blister is noted. There is a small amount of erythema surrounding the rim of the blister. The soft tissue itself does not show any fullness. No tenderness on examination. LABORATORY DATA: Yesterday white cell count was 14.2, today it is 7.8, hemoglobin 13.1, hematocrit 38.6, platelets is 233. CRP has not been done. Electrolytes look normal. Fasting glucose was 192. Wound culture pending. Foot x-ray shows no evidence for osteomyelitis, mildly related degenerative changes. IMPRESSION: 1. Diabetes. 2. Right heel blister from localized trauma from an ill-fitting shoe. 2. Cellulitis. On examination, I do not really suspect a deep-seated soft tissue infection on him. It would appear much thicker and the examination more tender. There is no fullness that I could feel. It seems to me that this is more just a blister from a local irritation that probably may have gotten infected. He was febrile last night. His temperature has gone down mildly. He is on some broad-spectrum antibiotics for possible diabetic foot infection. Personally, I do not think that he needs an MRI. I do not think that there is any deep-seated infections. He may need antibiotics until at least he is 24 hours afebrile. I just recommend some local measures, place an Optifoam on the heel as a support. I suspect that underneath the blister the skin that was the blister this will heal and dry. He does have very dry skin with cracks on the skin. He probably will benefit from soaks and placement of a skin moisturizer once the wound has fully healed and dried. Right now, he can apply some moisturizer on the involved area of the plantar space. He is at risk for a diabetic foot infection from cracks on the skin. He will probably also need a podiatry referral as an outpatient. Right now, I do not see any need for surgical intervention. I will follow the patient intermittently while he is in the hospital.
[2016-05-16 16:00] VITALS: BP 85/47
[2016-05-16 17:34] VITALS: BP 96/52
[2016-05-16] MEDS ORDERED: QUINAPRIL 20 MG TAB PO SCH (21:00)
[2016-05-16 21:40] VITALS: BP 108/55
[2016-05-16 22:00] VITALS: BP 108/55
[2016-05-17 05:00] VITALS: BP 121/66
[2016-05-17] MEDS: cefTAZidime 1 GM in D5W MINI-BAG PLUS 100 ML IV SCH (05:47)
[2016-05-17 07:20] LABS: BASO % 0.6 % (0.0-1.0); EOS # 0.2 K/mm3 (0.0-0.50); EOS % 2.4 % (0.0-3.0); LARGE UNSTAINED CELL # 0.2 K/mm3 (0.0-0.4); LARGE UNSTAINED CELL % 2.6 % (0.0-4.0); LYMPH # 1.3 K/mm3 (1.5-4.5); LYMPH % 17.1 % (24.0-44.0); MEAN CORPUSCULAR HGB CONC 33.5 g/dl (32.0-36.5); MEAN CORPUSCULAR VOLUME 89.4 fl (80.0-96.0); MONO # 0.5 K/mm3 (0.0-0.8); MONO % 7.4 % (0.0-5.0); NEUTROPHILS # 5.1 K/mm3 (1.8-7.7); NEUTROPHILS % 69.9 % (36.0-66.0); PLATELET COUNT, AUTOMATED 248 k/mm3 (150-450); RED CELL DISTRIBUTION WIDTH 12.3 % (11.5-14.5); WHITE BLOOD COUNT 7.3 K/mm3 (4.0-10.0)
[2016-05-17 07:31] LABS: ANION GAP 6 MEQ/L (8-16); BLOOD UREA NITROGEN 14 MG/DL (7-18); CALCIUM LEVEL 8.8 MG/DL (8.8-10.2); CARBON DIOXIDE LEVEL 30 MEQ/L (21-32); CHLORIDE LEVEL 102 MEQ/L (98-107); CREATININE FOR GFR 0.97 MG/DL (0.70-1.30); GLOMERULAR FILTRATION RATE > 60.0 (>49); GLUCOSE, FASTING 161 MG/DL (80-110); POTASSIUM SERUM 3.8 MEQ/L (3.5-5.1); SODIUM LEVEL 138 MEQ/L (136-145)
[2016-05-17 08:00] VITALS: BP 119/73
[2016-05-17] MEDS: HumaLOG INSULIN (NovoLOG) PER UNIT SC SCH (09:38)
[2016-05-17] MEDS: VANCOMYCIN HCL 1,000 MG, VIAL MATE ADAPTER 1 EACH in D5W 250 ML IV SCH (09:39)
[2016-05-17] MEDS: ASPIRIN 325 MG TAB PO SCH (09:39)
[2016-05-17] MEDS: SENOKOT S TAB PO SCH (09:40)
[2016-05-17] MEDS: SITagliptin 50 MG TAB (JANUVIA) PO SCH (09:40)
[2016-05-17] MEDS: ENOXAPARIN 40 MG/0.4 ML SYRINGE (J1650) SC SCH (09:40)
[2016-05-17] MEDS ORDERED: DOXY-278 PO (09:49)
--- NOTE | 2016-05-17 18:27 | DSES ---
DATE OF ADMISSION: 05/16/2016 DATE OF DISCHARGE: 05/17/2016 DISCHARGE DIAGNOSIS: Right heel abscess. SECONDARY DIAGNOSES: 1. Type 2 diabetes. 2. Hypertension. 3. Dyslipidemia. 4. Coronary artery disease. HOSPITALIZATION COURSE: The patient is a 66-year-old man who had been wearing a new pair of orthotics in his shoes. 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 On the days following this, he progressively noticed swelling and pain in the right heel, which prompted him to present to the emergency room where he was diagnosed with a right heel abscess, which was incised and drained in the emergency room. The patient was seen in consultation by Dr. Erik Magallon of general surgery, who did not feel that there was concern for deeper tissue infection and as such the patient did not receive any MRI. He did have an x-ray that did not reveal any evidence of osteomyelitis. The patient was treated initially with antibiotics, but given that his cultures were negative after 24 hours, he was transitioned to oral antibiotics. His symptoms did improve following drainage and he remained afebrile for 24 hours. OBJECTIVE: Today, the patient reports that he feels significantly better. He would like to go home. He denied chest pain, fevers, chills, nausea, vomiting, or diarrhea. VITAL SIGNS: Temperature 96.7, pulse 61, respiratory rate 18, blood pressure 121/66, oxygen saturation 97% on room air. GENERAL: He is an obese, man who gets up to greet me as I entered the room. He is in no distress. HEENT: Cranial nerves II through XII are grossly intact. Moist mucous membranes. CARDIOVASCULAR EXAM: S1, S2 regular. RESPIRATORY EXAM: Clear. ABDOMINAL EXAMINATION: Obese but benign. EXTREMITIES: No clubbing, cyanosis or edema. The right heel appears to be effectively drained. No area of fluctuance. No surrounding erythema. Mild tenderness but tolerable. LABORATORY DATA: WBC 7.3, down from 14.2 at the time of admission. Hemoglobin 13.7, hematocrit 40.9, platelet count 248. Chemistry panel: Sodium 138, potassium 3.8, chloride 102, bicarbonate 30, BUN 14, creatinine 0.9. Microbiology: Blood cultures are negative thus far. Wound cultures negative thus far. The patient did have an x-ray of the foot, which revealed no radiographic evidence for osteomyelitis, mild age-related degenerative changes. ASSESSMENT AND PLAN: This is a 66-year-old man with a right heel abscess, status post incision and drainage. 1. Right foot abscess, status post incision and drainage. Cultures are thus far negative. At this time, the patient will be transitioned to oral doxycycline to complete an 8 day course, 100 mg by mouth twice a day. He is to followup with his primary care provider within 7 days. He should have referral to podiatry to followup regularly, as he does have poor nail care and significantly cracked skin. He is certainly at risk for future infections. 2. Type 2 diabetes. The patient is continued on his home medications. He will followup with his primary care provider. 3. Hypertension. The patient is continued on nebivolol and quinapril. 4. Coronary artery disease. The patient is continued on his beta katherine an d nitrate. He is not on a statin. He reportedly cannot tolerate this. He is not on an aspirin. 5. Deep vein thrombosis (DVT) prophylaxis. The patient was on Lovenox while in the hospital. DISPOSITION: The patient is being discharged home under the care of his . His clinical status is improved. He is to followup with his primary care provider in 7 days. He is to avoid prolonged use of his right heel. Diet is as prior to admission. He is to have a dry, sterile dressing. He is to return to the emergency room should his symptoms worsen and consider outpatient podiatry referral for chronic diabetic foot care. MEDICATIONS: At the time of discharge: - doxycycline 100 mg by mouth twice a day - aspirin 325 mg daily and 650 mg three times a day as needed for pain - isosorbide mononitrate extended release 30 mg daily - nebivolol 10 mg daily - quinapril 40 mg at night - Januvia 50 mg daily Greater than 30 minutes was spent organizing disposition.
--- NOTE | 2016-05-18 05:37 | EDDOCDS ---
Physician Documentation [facility] Name: Jose Lei Age: 66 yrs Sex: Male : 1950 Arrival Date: 05/15/2016 Time: 21:05 Bed Admit Hold Private MD: Malik Felix M.D. Disposition: 05/15/16 23:18 Hospitalization ordered by Celina Salazar for Inpatient Admission. Preliminary diagnosis is Cutaneous abscess of right foot. - Bed requested for M PED. - Status is Inpatient Admission. nn1 - Condition is Stable. - Problem is new. - Symptoms are unchanged. Historical: - Allergies: no known allergies; - Home Meds: 1. Januvia 50 mg oral tab once daily 2. isosorbide mononitrate 30 mg Oral Tb24 1 tab once daily 3. quinapril 40 mg Oral tab 1 tab once daily 4. Bystolic 10 mg oral tab 1 tab once daily 5. aspirin 325 mg Oral tab 1 tab once daily - PMHx: Diabetes - NIDDM: controlled; Hypertension; [place]; - PSHx: Cardiac stents; Hernia repair; - Social history: Smoking status: Patient states was never smoker of tobacco. No barriers to communication noted, The patient speaks fluent Turkmen. - Family history: Not pertinent. - : The pt / caregiver states he / she is not on anticoagulants. Home medication list is obtained from the patient. - Exposure Risk Screening:: None identified. Vital Signs: 05/15 21:06 BP 183 / 96; Pulse 93; Resp 18 S; Temp 100.1(O); Pulse Ox 95% on R/A; Weight 131.54 kg dd6 / 290 lbs (R); Height 6 ft. 0 in. (182.88 cm) (R); 22:31 BP 178 / 92; Pulse 90; Resp 18; Pulse Ox 98% on R/A; Pain 7/10; tm5 22:54 Temp 99.3(O); tm5 23:15 BP 168 / 89; Pulse 88; Resp 20; Pulse Ox 98% on R/A; Pain 4/10; tm5 05/16 00:30 BP 162 / 78; Pulse 72; Resp 20 S; Pulse Ox 97% on R/A; Pain 2/10; tm5 02:59 BP 111 / 68; Pulse 58; Resp 18; Temp 97.3(O); Pulse Ox 95% on R/A; Pain 0/10; nn1 04:27 BP 117 / 83; Pulse 60; Resp 18; Pulse Ox 97% on R/A; Pain 0/10; nn1 05/15 21:06 Body Mass Index 39.33 (131.54 kg, 182.88 cm) dd6 MDM: 05/15 21:31 IV Saline Lock ordered. ke 21:31 -Blood Culture (Adults Only), peripheral from different site, or from device/port/PICC ke etc. if present ordered. 21:31 NS 0.9% 1000 ml IV at 100 mL/hr continuous ordered. ke 21:32 Foot, Complete Ordered. EDMS 21:32 CBC with Diff Ordered. EDMS 21:32 BMP Ordered. EDMS 21:32 Liver Profile Ordered. EDMS 21:32 -Blood Culture Ordered. EDMS 21:35 -Blood Culture (Adults Only), peripheral from different site, or from device/port/PICC ajs etc. if present complete. 21:39 BLOOD CULTURES Ordered. EDMS 22:04 Ondansetron 4 mg IVP once ordered. ke 22:05 morphine 4 mg IVP every 30 minutes; Document pain score/vitals after each dose (Hold if ke SBP < 90mmHg) x2 ordered. 22:05 Acetaminophen Tablet 975 mg PO once ordered. ke 22:05 CBC with Diff Reviewed. ke 22:14 [facility] Payment Agreement was scanned into [employer] and attached to record. gjb 22:15 Financial registration complete. gjb 22:48 BMP Reviewed. ke 22:48 Liver Profile Reviewed. ke 23:08 cefTRIAXone 1 grams IVPB once over 30 mins; dilute in 50mL of NS or D5W ordered. ke 23:09 Wound Culture - Most Extremities Ordered. EDMS 23:13 BED REQUEST+ADM ordered. EDMS 05/16 00:13 PHYSICAL THERAPY EVAL & TREAT ordered. EDMS 00:14 Admission / Observation Status ordered. EDMS 00:14 CONSISTENT CARBOHYDRATES ordered. EDMS 01:55 MRI FOOT WITHOUT CONTRAST Ordered. EDMS 02:34 Fingerstick Blood Sugar Ordered. EDMS 11:04 T-Sheet-- Draft Copy was scanned into [employer] and attached to record. Point of Care Testing: Blood Glucose: 02:35 Blood Glucose: 168 mg/dL; nn1 Ranges: Administered Medications: 05/15 22:02 Drug: NS 0.9% 1000 ml [sodium chloride 0.9 % intravenous solution] Route: IV; Rate: 100 tm5 mL/hr; Site: right antecubital; 22:12 Drug: Ondansetron 4 mg [ondansetron HCl 2 mg/mL intravenous solution (2 mL)] Route: tm5 IVP; Site: right antecubital; 22:31 Follow up: Response: Nausea is decreased; No Adverse Reaction tm5 22:12 Drug: morphine 4 mg [morphine 4 mg/mL intravenous cartridge (1 mL)] Route: IVP; Site: tm5 right antecubital; 22:31 Follow up: BP 178 / 92; Pulse 90 bpm; Resp 18 bpm; Pulse Ox 98% RA; Pain 7/10 Adult tm5 22:31 Follow up: Response: No Adverse Reaction; Pain is decreased tm5 22:12 Drug: Acetaminophen 975 mg [acetaminophen 325 mg tablet (3 tabs)] Route: PO; tm5 22:54 Follow up: Temp 99.3 Oral; Response: Temperature is decreased tm5 22:53 Drug: morphine 4 mg [morphine 4 mg/mL intravenous cartridge (1 mL)] Route: IVP; Site: tm5 right antecubital; 23:15 Follow up: BP 168 / 89; Pulse 88 bpm; Resp 20 bpm; Pulse Ox 98% RA; Pain 4/10 Adult; tm5 Response: No Adverse Reaction; Pain is decreased 23:14 Drug: cefTRIAXone 1 grams [ceftriaxone 1 gram solution for injection] Route: IVPB; tm5 Infused Over: 30 mins; Site: right antecubital; 23:45 Follow up: Response: No Adverse Reaction; IV Status: Completed infusion; IV Intake: [id number] Signatures: Dispatcher [employer] EDMS Rosi Yoder RN RN Eda Damian, Aaron Reg Merrill Ferrer, FREIGHT RECEIVER FREIGHT RECEIVER Patricia Shafer Mallory, RN RN ms18 Jeffrey JohnsonRN RN nn1 Armida Denny b Alexia Mcdaniel RN RN tm5 The chart was reviewed and I authenticate all verbal orders and agree with the evaluation and treatment provided.Attachments: 22:14 [facility] [place] gjb 01/11 11:04 T-Sheet-- Draft Copy gb Chart Complete MTDD
--- NOTE | 2016-05-18 05:37 | EDDOCDS ---
Physician Documentation [facility] Name: Jose Lei Age: 66 yrs Sex: Male : 1950 Arrival Date: 05/15/2016 Time: 21:05 Bed Admit Hold Private MD: Malik Felix M.D. Disposition: 05/15/16 23:18 Hospitalization ordered by Celina Salazar for Inpatient Admission. Preliminary diagnosis is Cutaneous abscess of right foot. - Bed requested for M PED. - Status is Inpatient Admission. nn1 - Condition is Stable. - Problem is new. - Symptoms are unchanged. Historical: - Allergies: no known allergies; - Home Meds: 1. Januvia 50 mg oral tab once daily 2. isosorbide mononitrate 30 mg Oral Tb24 1 tab once daily 3. quinapril 40 mg Oral tab 1 tab once daily 4. Bystolic 10 mg oral tab 1 tab once daily 5. aspirin 325 mg Oral tab 1 tab once daily - PMHx: Diabetes - NIDDM: controlled; Hypertension; [place]; - PSHx: Cardiac stents; Hernia repair; - Social history: Smoking status: Patient states was never smoker of tobacco. No barriers to communication noted, The patient speaks fluent Slovenian. - Family history: Not pertinent. - : The pt / caregiver states he / she is not on anticoagulants. Home medication list is obtained from the patient. - Exposure Risk Screening:: None identified. Vital Signs: 05/15 21:06 BP 183 / 96; Pulse 93; Resp 18 S; Temp 100.1(O); Pulse Ox 95% on R/A; Weight 131.54 kg dd6 / 290 lbs (R); Height 6 ft. 0 in. (182.88 cm) (R); 22:31 BP 178 / 92; Pulse 90; Resp 18; Pulse Ox 98% on R/A; Pain 7/10; tm5 22:54 Temp 99.3(O); tm5 23:15 BP 168 / 89; Pulse 88; Resp 20; Pulse Ox 98% on R/A; Pain 4/10; tm5 05/16 00:30 BP 162 / 78; Pulse 72; Resp 20 S; Pulse Ox 97% on R/A; Pain 2/10; tm5 02:59 BP 111 / 68; Pulse 58; Resp 18; Temp 97.3(O); Pulse Ox 95% on R/A; Pain 0/10; nn1 04:27 BP 117 / 83; Pulse 60; Resp 18; Pulse Ox 97% on R/A; Pain 0/10; nn1 05/15 21:06 Body Mass Index 39.33 (131.54 kg, 182.88 cm) dd6 MDM: 05/15 21:31 IV Saline Lock ordered. ke 21:31 -Blood Culture (Adults Only), peripheral from different site, or from device/port/PICC ke etc. if present ordered. 21:31 NS 0.9% 1000 ml IV at 100 mL/hr continuous ordered. ke 21:32 Foot, Complete Ordered. EDMS 21:32 CBC with Diff Ordered. EDMS 21:32 BMP Ordered. EDMS 21:32 Liver Profile Ordered. EDMS 21:32 -Blood Culture Ordered. EDMS 21:35 -Blood Culture (Adults Only), peripheral from different site, or from device/port/PICC ajs etc. if present complete. 21:39 BLOOD CULTURES Ordered. EDMS 22:04 Ondansetron 4 mg IVP once ordered. ke 22:05 morphine 4 mg IVP every 30 minutes; Document pain score/vitals after each dose (Hold if ke SBP < 90mmHg) x2 ordered. 22:05 Acetaminophen Tablet 975 mg PO once ordered. ke 22:05 CBC with Diff Reviewed. ke 22:14 [facility] Payment Agreement was scanned into [employer] and attached to record. gjb 22:15 Financial registration complete. gjb 22:48 BMP Reviewed. ke 22:48 Liver Profile Reviewed. ke 23:08 cefTRIAXone 1 grams IVPB once over 30 mins; dilute in 50mL of NS or D5W ordered. ke 23:09 Wound Culture - Most Extremities Ordered. EDMS 23:13 BED REQUEST+ADM ordered. EDMS 05/16 00:13 PHYSICAL THERAPY EVAL & TREAT ordered. EDMS 00:14 Admission / Observation Status ordered. EDMS 00:14 CONSISTENT CARBOHYDRATES ordered. EDMS 01:55 MRI FOOT WITHOUT CONTRAST Ordered. EDMS 02:34 Fingerstick Blood Sugar Ordered. EDMS 11:04 T-Sheet-- Draft Copy was scanned into [employer] and attached to record. Point of Care Testing: Blood Glucose: 02:35 Blood Glucose: 168 mg/dL; nn1 Ranges: Administered Medications: 05/15 22:02 Drug: NS 0.9% 1000 ml [sodium chloride 0.9 % intravenous solution] Route: IV; Rate: 100 tm5 mL/hr; Site: right antecubital; 22:12 Drug: Ondansetron 4 mg [ondansetron HCl 2 mg/mL intravenous solution (2 mL)] Route: tm5 IVP; Site: right antecubital; 22:31 Follow up: Response: Nausea is decreased; No Adverse Reaction tm5 22:12 Drug: morphine 4 mg [morphine 4 mg/mL intravenous cartridge (1 mL)] Route: IVP; Site: tm5 right antecubital; 22:31 Follow up: BP 178 / 92; Pulse 90 bpm; Resp 18 bpm; Pulse Ox 98% RA; Pain 7/10 Adult tm5 22:31 Follow up: Response: No Adverse Reaction; Pain is decreased tm5 22:12 Drug: Acetaminophen 975 mg [acetaminophen 325 mg tablet (3 tabs)] Route: PO; tm5 22:54 Follow up: Temp 99.3 Oral; Response: Temperature is decreased tm5 22:53 Drug: morphine 4 mg [morphine 4 mg/mL intravenous cartridge (1 mL)] Route: IVP; Site: tm5 right antecubital; 23:15 Follow up: BP 168 / 89; Pulse 88 bpm; Resp 20 bpm; Pulse Ox 98% RA; Pain 4/10 Adult; tm5 Response: No Adverse Reaction; Pain is decreased 23:14 Drug: cefTRIAXone 1 grams [ceftriaxone 1 gram solution for injection] Route: IVPB; tm5 Infused Over: 30 mins; Site: right antecubital; 23:45 Follow up: Response: No Adverse Reaction; IV Status: Completed infusion; IV Intake: [id number] Signatures: Dispatcher [employer] EDMS Rosi Yoder RN RN Eda Damian, Aaron Reg Merrill Ferrer, COMPASS OPERATOR COMPASS OPERATOR Patricia Shafer Mallory, RN RN [id number] Jeffrey JohnsonRN RN nn1 Armida Denny b Alexia Mcdaniel RN RN tm5 The chart was reviewed and I authenticate all verbal orders and agree with the evaluation and treatment provided.Attachments: 22:14 [facility] [place] Agreement gjb 01/11 11:04 T-Sheet-- Draft Copy gb Chart Complete MTDD
--- NOTE | 2016-05-18 05:38 | EDDOCDS ---
Nurse's Notes [facility] Name: Jose Lei Age: 66 yrs Sex: Male : 1950 Arrival Date: 05/15/2016 Time: 21:05 Bed Admit Hold Private MD: Malik Felix M.D. Diagnosis: Cutaneous abscess of right foot Presentation: 05/15 21:08 Presenting complaint: Patient states: that on Saturday he noticed some discoloration to ms18 his R heel. Today, pt presents with large discolored area on his heel, red and swollen around the discolored tissue. Hx diabetic. Adult Sepsis Screening: The patient does not have new or worsening altered mentation. Patient's respiratory rate is less than 22. Systolic blood pressure is greater than 100. Patient has a qSOFA score of 0- Negative Sepsis Screen. Suicide/Homicide risk assessment- the patient denies having any suicidal and/or homicidal ideations and does not present with any other emotional, behavioral or mental health complaints. 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 Transition of care: patient was not received from another setting of care. 21:08 Acuity: JESSICA Level 3 ms18 21:08 Method Of Arrival: Walkin/Carried/Asstd ms18 Triage Assessment: 21:13 General: Appears in no apparent distress, comfortable, Behavior is appropriate for age, ms18 cooperative. Pain: Location: lateral side of right heel and medial aspect of right heel Pain currently is 9 out of 10 on a pain scale. Neurological: Level of Consciousness is awake, alert, obeys commands, Oriented to person, place, time. Respiratory: No deficits noted. Derm: Skin is pink, warm & dry. Historical: - Allergies: no known allergies; - Home Meds: 1. Januvia 50 mg oral tab once daily 2. isosorbide mononitrate 30 mg Oral Tb24 1 tab once daily 3. quinapril 40 mg Oral tab 1 tab once daily 4. Bystolic 10 mg oral tab 1 tab once daily 5. aspirin 325 mg Oral tab 1 tab once daily - PMHx: Diabetes - NIDDM: controlled; Hypertension; SD; - PSHx: Cardiac stents; Hernia repair; - Social history: Smoking status: Patient states was never smoker of tobacco. No barriers to communication noted, The patient speaks fluent Barbadian. - Family history: Not pertinent. - : The pt / caregiver states he / she is not on anticoagulants. Home medication list is obtained from the patient. - Exposure Risk Screening:: None identified. Screenin:48 Screening information is obtained from the patient. Fall risk: No risks identified. tm5 Assistance ADL's: requires no assistance with activities of daily living. Abuse/DV Screen: The patient / caregiver reports he/she is: not in a situation that causes fear, pain or injury. Nutritional screening: No deficits noted. Advance Directives: There is no active DNR order. home support is adequate. Assessment: 21:48 General: Appears in no apparent distress, Behavior is appropriate for age, cooperative. tm5 Pain: Location: lateral side of right heel and medial aspect of right heel Pain currently is 9 out of 10 on a pain scale. Quality of pain is described as throbbing. Neurological: Level of Consciousness is awake, alert, Oriented to person, place, time. Respiratory: Airway is patent Respiratory effort is even, unlabored, Respiratory pattern is regular, symmetrical. Derm: Abscess located on lateral side of right heel and medial aspect of right heel is golf ball sized, has no drainage, is hot to touch, is raised, abscess is purple/bruise in color, no open areas, no drainage. 22:30 Reassessment: Patient appears in no apparent distress at this time. Patient states tm5 feeling better. Patient states symptoms have improved. per pt his pain is better at this time, resting on stretcher, no further complaints. 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 tm5 05/16 00:25 General: Appears in no apparent distress, comfortable, Behavior is appropriate for age, jmb cooperative, Patient laying on stretcher, appears comfortable. Patient voices no complaints at this time. . Neurological: Level of Consciousness is awake, alert, obeys commands, Oriented to person, place, time. Respiratory: Airway is patent Respiratory effort is even, unlabored, Respiratory pattern is regular, symmetrical. 01:19 General: Appears in no apparent distress, comfortable, Behavior is appropriate for age, jmb cooperative. Neurological: Level of Consciousness is awake, alert, obeys commands, Oriented to person, place, time. Respiratory: Airway is patent Respiratory effort is even, unlabored, Respiratory pattern is regular, symmetrical. 01:22 Reassessment: Patient appears in no apparent distress at this time. pt resting with tm5 eyes closed, resp easy, appears to be sleeping at this time . 02:45 General: Appears in no apparent distress, comfortable, Behavior is appropriate for age, nn1 cooperative. Respiratory: Airway is patent Respiratory effort is even, unlabored, Respiratory pattern is regular, symmetrical. Derm: Skin is pink, warm & dry. 03:17 General: Patient able to ambulate without assistance. Vancomycin infusing per admission nn1 orders. . 03:37 General: Appears in no apparent distress, comfortable, Behavior is appropriate for age, nn1 cooperative. Neurological: Level of Consciousness is awake, alert. Respiratory: Airway is patent Respiratory effort is even, unlabored, Respiratory pattern is regular, symmetrical. Derm: Skin is pink, warm & dry. 04:26 General: Admission nurse at bedside, patient up to peds in wheelchair. Neurological: nn1 Level of Consciousness is awake, alert, obeys commands, Oriented to person, place, time. Respiratory: Airway is patent Respiratory effort is even, unlabored, Respiratory pattern is regular, symmetrical. Derm: Skin is pink, warm & dry. Vital Signs: 05/15 21:06 BP 183 / 96; Pulse 93; Resp 18 S; Temp 100.1(O); Pulse Ox 95% on R/A; Weight 131.54 kg dd6 (R); Height 6 ft. 0 in. (182.88 cm) (R); 22:31 BP 178 / 92; Pulse 90; Resp 18; Pulse Ox 98% on R/A; Pain 7/10; tm5 22:54 Temp 99.3(O); tm5 23:15 BP 168 / 89; Pulse 88; Resp 20; Pulse Ox 98% on R/A; Pain 4/10; tm5 05/16 00:30 BP 162 / 78; Pulse 72; Resp 20 S; Pulse Ox 97% on R/A; Pain 2/10; tm5 02:59 BP 111 / 68; Pulse 58; Resp 18; Temp 97.3(O); Pulse Ox 95% on R/A; Pain 0/10; nn1 04:27 BP 117 / 83; Pulse 60; Resp 18; Pulse Ox 97% on R/A; Pain 0/10; nn1 05/15 21:06 Body Mass Index 39.33 (131.54 kg, 182.88 cm) dd6 Vitals: 05/15 21:06 Log In Time: May 15, 2016 at 21:04. dd6 ED Course: 21:06 Patient visited by Cosme Key PCA. dd6 21:06 Malik Felix is Private Physician. dd6 21:06 Patient moved to Waiting dd6 21:07 Patient moved to Pre RCE dd6 21:10 Triage Initiated ms18 21:14 Patient moved to Triage 3 ms18 21:18 Patient moved to Triage 1 ms18 21:25 [facility] ke 21:25 Patient visited by Merrill Rodriguez FNP. ke 21:25 Patient visited by Merrill Rodriguez FNP. ke 21:27 Patient moved to [facility] 21:43 Liver Profile Sent. tm5 21:43 BMP Sent. tm5 21:43 CBC with Diff Sent. tm5 21:47 -Blood Culture Sent. tm5 21:48 Awaiting ED physician evaluation. tm5 21:48 The patient / caregiver is instructed regarding the plan of care and ED course. tm5 21:48 Inserted saline lock: 18 gauge in right antecubital area and blood collected. The tm5 patient tolerated the procedure well. Labs/Blood culture drawn. 21:53 BLOOD CULTURES Sent. tm5 21:54 Patient visited by Alexia Mcdaniel RN. tm5 21:54 Patient moved to radiology. tm5 22:00 Patient visited by Alexia Mcdaniel RN. tm5 22:00 Patient moved back from radiology. tm5 22:14 [facility] Payment Agreement was scanned into [employer] and attached to record. gjb 22:24 Patient visited by Merrill Rodriguez FNP. ke 22:30 Patient visited by Alexia Mcdaniel RN. tm5 23:06 Patient visited by Alexia Mcdaniel RN. tm5 23:06 Visited by SHANELLE Rodriguez. tm5 23:14 Wound Culture - Most Extremities Sent. tm5 23:18 Celina Salazar is Hospitalizing Provider. ke 23:39 Patient visited by Alexia Mcdaniel RN. tm5 23:39 Visited by Hospitalist at bedside for admission eval. tm5 23:58 Patient visited by Alexia Mcdaniel RN. tm5 05/16 00:00 Patient visited by Alexia Mcdaniel RN. tm5 00:01 Dressings: Kerlix X 1; 4X4s X 4; applied to lateral side of right heel and medial tm5 aspect of right heel. 01:19 Patient visited by Bridger Evans RN. jmb 01:43 Patient moved to 18 jmb 01:51 Patient visited by Alexia Mcdaniel RN. tm5 01:51 Report given to Gisela HERNANDEZ. tm5 02:34 Patient moved to Admit Hold sls1 03:19 No procedures done that require assistance. nn1 04:28 Patient visited by Jeffrey Johnson RN. nn1 11:04 T-Sheet-- Draft Copy was scanned into [employer] and attached to record. gb Administered Medications: 05/15 22:02 Drug: NS 0.9% 1000 ml [sodium chloride 0.9 % intravenous solution] Route: IV; Rate: 100 tm5 mL/hr; Site: right antecubital; 22:12 Drug: Ondansetron 4 mg [ondansetron HCl 2 mg/mL intravenous solution (2 mL)] Route: tm5 IVP; Site: right antecubital; 22:31 Follow up: Response: Nausea is decreased; No Adverse Reaction tm5 22:12 Drug: morphine 4 mg [morphine 4 mg/mL intravenous cartridge (1 mL)] Route: IVP; Site: tm5 right antecubital; 22:31 Follow up: BP 178 / 92; Pulse 90 bpm; Resp 18 bpm; Pulse Ox 98% RA; Pain 7/10 Adult tm5 22:31 Follow up: Response: No Adverse Reaction; Pain is decreased tm5 22:12 Drug: Acetaminophen 975 mg [acetaminophen 325 mg tablet (3 tabs)] Route: PO; tm5 22:54 Follow up: Temp 99.3 Oral; Response: Temperature is decreased tm5 22:53 Drug: morphine 4 mg [morphine 4 mg/mL intravenous cartridge (1 mL)] Route: IVP; Site: tm5 right antecubital; 23:15 Follow up: BP 168 / 89; Pulse 88 bpm; Resp 20 bpm; Pulse Ox 98% RA; Pain 4/10 Adult; tm5 Response: No Adverse Reaction; Pain is decreased 23:14 Drug: cefTRIAXone 1 grams [ceftriaxone 1 gram solution for injection] Route: IVPB; tm5 Infused Over: 30 mins; Site: right antecubital; 23:45 Follow up: Response: No Adverse Reaction; IV Status: Completed infusion; IV Intake: [id number] Point of Care Testing: Blood Glucose: 05/16 02:35 Blood Glucose: 168 mg/dL; nn1 Ranges: Intake: 05/15 23:45 IV: 50.00ml; Total: 50.00ml. tm5 Order Results: Lab Order: CBC with Diff; SPEC'M 05/15/16 21:41 Test: WHITE BLOOD COUNT; Value: 14.2; Range: 4.0-10.0; Abnormal: Above high normal; Units: K/mm3; Status: F Test: RED BLOOD COUNT; Value: 5.00; Range: 4.30-6.10; Units: M/mm3; Status: F Test: HEMOGLOBIN; Value: 15.1; Range: 14.0-18.0; Units: g/dl; Status: F Test: HEMATOCRIT; Value: 43.4; Range: 42.0-52.0; Units: %; Status: F Test: MEAN CORPUSCULAR VOLUME; Value: 86.8; Range: 80.0-96.0; Units: fl; Status: F Test: MEAN CORPUSCULAR HEMOGLOBIN; Value: 30.2; Range: 27.0-33.0; Units: pg; Status: F Test: MEAN CORPUSCULAR HGB CONC; Value: 34.8; Range: 32.0-36.5; Units: g/dl; Status: F Test: RED CELL DISTRIBUTION WIDTH; Value: 13.1; Range: 11.5-14.5; Units: %; Status: F Test: PLATELET COUNT, AUTOMATED; Value: 260; Range: 150-450; Units: k/mm3; Status: F Test: NEUTROPHILS %; Value: 80.9; Range: 36.0-66.0; Abnormal: Above high normal; Units: %; Status: F Test: LYMPH %; Value: 8.7; Range: 24.0-44.0; Abnormal: Below low normal; Units: %; Status: F Test: MONO %; Value: 7.0; Range: 0.0-5.0; Abnormal: Above high normal; Units: %; Status: F Test: EOS %; Value: 0.8; Range: 0.0-3.0; Units: %; Status: F Test: BASO %; Value: 1.3; Range: 0.0-1.0; Abnormal: Above high normal; Units: %; Status: F Test: LARGE UNSTAINED CELL %; Value: 1.2; Range: 0.0-4.0; Units: %; Status: F Test: NEUTROPHILS #; Value: 11.5; Range: 1.8-7.7; Abnormal: Above high normal; Units: K/mm3; Status: F Test: LYMPH #; Value: 1.4; Range: 1.5-4.5; Abnormal: Below low normal; Units: K/mm3; Status: F Test: MONO #; Value: 1.0; Range: 0.0-0.8; Abnormal: Above high normal; Units: K/mm3; Status: F Test: EOS #; Value: 0.1; Range: 0.0-0.50; Units: K/mm3; Status: F Test: BASO #; Value: 0.2; Range: 0.0-0.2; Units: K/mm3; Status: F Test: LARGE UNSTAINED CELL #; Value: 0.2; Range: 0.0-0.4; Units: K/mm3; Status: F Lab Order: [facility]; [facility] 05/15/16 21:41 Test: GLUCOSE, FASTING; Value: 193; Range: 80-110; Abnormal: Above high normal; Units: MG/DL; Status: F Test: BLOOD UREA NITROGEN; Value: 16; Range: 7-18; Units: MG/DL; Status: F Test: CREATININE FOR GFR; Value: 1.11; Range: 0.70-1.30; Units: MG/DL; Status: F Test: GLOMERULAR FILTRATION RATE; Value: > 60.0; Range: >49; Status: F Test: SODIUM LEVEL; Value: 138; Range: 136-145; Units: MEQ/L; Status: F Test: POTASSIUM SERUM; Value: 4.2; Range: 3.5-5.1; Units: MEQ/L; Status: F Test: CHLORIDE LEVEL; Value: 101; Range: 98-107; Units: MEQ/L; Status: F Test: CARBON DIOXIDE LEVEL; Value: 28; Range: 21-32; Units: MEQ/L; Status: F Test: ANION GAP; Value: 9; Range: 8-16; Units: MEQ/L; Status: F Test: CALCIUM LEVEL; Value: 9.1; Range: 8.8-10.2; Units: MG/DL; Status: F Test Note: ; Units are mL/min/1.73 m2 Chronic Kidney Disease Staging per NKF: Stage I & II GFR >=60 Normal to Mildly Decreased Stage III GFR 30-59 Moderately Decreased Stage IV GFR 15-29 Severely Decreased Stage V GFR <15 Very Little GFR Left ESRD GFR <15 on WARDROBE ATTENDANT Lab Order: Liver Profile; SPEC'05/15/16 21:41 Test: AST/SGOT; Value: 13; Range: 15-37; Abnormal: Below low normal; Units: U/L; Status: F Test: ALT/SGPT; Value: 21; Range: 12-78; Units: U/L; Status: F Test: ALKALINE PHOSPHATASE; Value: 91; Range: 45-117; Units: U/L; Status: F Test: BILIRUBIN,TOTAL; Value: 0.7; Range: 0.2-1.0; Units: MG/DL; Status: F Test: BILIRUBIN,DIRECT; Value: 0.2; Range: 0.0-0.2; Units: MG/DL; Status: F Test: TOTAL PROTEIN; Value: 7.1; Range: 6.4-8.2; Units: GM/DL; Status: F Test: ALBUMIN; Value: 3.8; Range: 3.2-5.2; Units: GM/DL; Status: F Test: ALBUMIN/GLOBULIN RATIO; Value: 1.15; Range: 1.00-1.93; Status: F Lab Order: Fingerstick Blood Sugar; SPEC'05/16/16 02:26 Test: BEDSIDE GLUCOSE; Value: 165; Range: 80-115; Abnormal: Above high normal; Units: MG/DL; Status: F Outcome: 23:18 Decision to Hospitalize by Provider. 05/16 03:18 Admission hand-off: Report called to Arlyn, LOOP TENDER. nn1 03:19 Discharge Assessment: Patient awake, alert and oriented x 3. No cognitive and/or nn1 functional deficits noted. Patient verbalized understanding of disposition instructions. patient administered narcotics - yes. Patient was admitted to the hospital or transferred to another facility. The following High Risk Discharge criteria are identified: None. Admitted to Pediatrics accompanied by tech, via stretcher, with chart. Condition: stable. No special radiology studies were completed. Property :Personal belongings accompany Pt. 04:36 Patient left the ED. nn1 Signatures: Eda Ariza, Reg Reg gb Merrill Rordiguez, SECURITY SPECIALIST SECURITY SPECIALIST ke Cosme Key, TAKER OFF BRAKER MACHINE TAKER OFF BRAKER MACHINE dd6 Josefina Nunes, RN RN sls1 Princess Hoffmann,RN RN Bridger GuptaRN RN Esther Toure,RN RN ms18 Jeffrey Johnson,RN RN nn1 Armida Denny Tonya,RN RN tm5 Chart Complete PATITO
[2016-05-18] MEDS ORDERED: INFLUENZA VIRUS VACCINE HIGH DOSE 0.5 ML SYRINGE (90662) IM SCH (09:00)
== END 2016-05-17 12:48 | disposition home or self-care (01) | DRG 603 ==
LOC: M ED 21:05 → M ED INP 05-16 00:08 → M PED 05-16 04:35
PROVIDERS: ADMIT Internal Medicine Nephrology; ATTEND Internal Medicine
DX: L02.611 Cutaneous abscess of right foot (principal); E11.621 Type 2 diabetes mellitus with foot ulcer; I10 Essential (primary) hypertension; E78.5 Hyperlipidemia, unspecified; I25.10 Atherosclerotic heart disease of native coronary artery without angina pectoris; Z79.82 Long term (current) use of aspirin; Z79.899 Other long term (current) drug therapy; I25.2 Old myocardial infarction

== ENCOUNTER → 2016-11-15 | Outpatient (CLI) | payer MEDICARE, OTHER ==
[~2016-11-15] VITALS: Ht 185.4 cm; Wt 132.4 kg
[~2016-11-15] MED LIST: ASPI325T PO; BYST10TA2 PO; DOXY-278 PO; ISOS30TA4 PO; LIDOCAINE 2% INJ 100 MG/5 ML SDV (FOR ANES.) As Ordered ONE; MULT1TAB10 PO; NS 500 ML IV SCH; PROPOFOL 200 MG/20 ML VIAL As Ordered ONE; QUIN1TAB15 PO; SITA50TAB PO; TERB250T12 PO
--- NOTE | 2016-11-15 08:31 | ROOR ---
Patient Name: Jose Lei Procedure Date: 11/15/2016 8:03 AM Date of : 1950 Age: 66 Room: [facility] Gender: Male Note Status: Finalized Procedure: Colonoscopy Indications: Screening for colorectal malignant neoplasm Providers: Hieu Stephenson Jr, MD Referring MD: Malik Felix MD Requesting Provider: Medicines: Propofol per Anesthesia Complications: No immediate complications. Procedure: Pre-Anesthesia Assessment: - Prior to the procedure, a History and Physical was performed, and patient medications and allergies were reviewed. The patient is competent. The risks and benefits of the procedure and the sedation options and risks were discussed with the patient. All questions were answered and informed consent was obtained. Patient identification and proposed procedure were verified by the physician and the nurse in the pre-procedure area and in the procedure room. Mental Status Examination: alert and oriented. Airway Examination: normal oropharyngeal airway and neck mobility. Respiratory Examination: clear to auscultation. CV Examination: normal. ASA Grade Assessment: II - A patient with mild systemic disease. After reviewing the risks and benefits, the patient was deemed in satisfactory condition to undergo the procedure. The anesthesia plan was to use moderate sedation / analgesia (conscious sedation). Immediately prior to administration of medications, the patient was re-assessed for adequacy to receive sedatives. The heart rate, respiratory rate, oxygen saturations, blood pressure, adequacy of pulmonary ventilation, and response to care were monitored throughout the procedure. The physical status of the patient was re-assessed after the procedure. The Colonoscope was introduced through the anus and advanced to the cecum, identified by appendiceal orifice and ileocecal valve. The colonoscopy was performed without difficulty. The patient tolerated the procedure well. The quality of the bowel preparation was adequate. Findings: The perianal and digital rectal examinations were normal. Pertinent negatives include normal sphincter tone, no palpable rectal lesions and no anal lesion or abnormality was detected. Multiple small and large-mouthed diverticula were found in the sigmoid colon. Three polyps were found in the descending colon, transverse colon and ascending colon. The polyps were small in size. These polyps were removed with a hot snare. Resection was complete, but the polyp tissue was only partially retrieved. Impression: - Diverticulosis in the sigmoid colon. - Three small polyps in the descending colon, in the transverse colon and in the ascending colon, removed with a hot snare. Complete resection. Partial retrieval. Recommendation: - Discharge patient to home (ambulatory). - Repeat colonoscopy in 5 years for surveillance based on pathology results. Hieu Stephenson MD Hieu Stephenson Jr, MD 11/15/2016 8:30:24 AM This report has been signed electronically. Number of Addenda: 0 Note Initiated On: 11/15/2016 8:03 AM Estimated Blood Loss: Estimated blood loss: none.
[2016-11-15 08:50] VITALS: BP 179/79
== END | disposition home or self-care (01) ==
LOC: M OPP 07:05
PROVIDERS: ATTEND Surgery
DX: Z12.11 Encounter for screening for malignant neoplasm of colon (principal); D12.2 Benign neoplasm of ascending colon; D12.3 Benign neoplasm of transverse colon; D12.4 Benign neoplasm of descending colon; K57.30 Diverticulosis of large intestine without perforation or abscess without bleeding; I25.10 Atherosclerotic heart disease of native coronary artery without angina pectoris; Z95.5 Presence of coronary angioplasty implant and graft; I25.2 Old myocardial infarction; I10 Essential (primary) hypertension; E78.5 Hyperlipidemia, unspecified; E11.9 Type 2 diabetes mellitus without complications; J45.909 Unspecified asthma, uncomplicated; K59.00 Constipation, unspecified; E66.9 Obesity, unspecified; L98.8 Other specified disorders of the skin and subcutaneous tissue; Z88.8 Allergy status to other drugs, medicaments and biological substances; Z79.82 Long term (current) use of aspirin; Z79.84 Long term (current) use of oral hypoglycemic drugs; Z79.899 Other long term (current) drug therapy

== ENCOUNTER → 2017-07-31 | Outpatient (CLI) | payer MEDICARE, OTHER | LOC: M WUC 09:08 | DX: R05 Cough (principal) | CPT/HCPCS: 71046 ==

== ENCOUNTER → 2017-11-21 | Outpatient (REF) | payer MEDICARE, OTHER | LOC: M SMT 13:10 | DX: R97.20 Elevated prostate specific antigen [PSA] (principal); Z79.899 Other long term (current) drug therapy | CPT/HCPCS: 87086 ==

== ENCOUNTER → 2019-04-16 | Outpatient (REF) | payer MEDICARE, OTHER ==
[~2019-04-16] MED LIST changes: +ASPI-1 PO; -ASPI325T PO; -DOXY-278 PO; +DOXY-350 PO; -LIDOCAINE 2% INJ 100 MG/5 ML SDV (FOR ANES.) As Ordered ONE; -NS 500 ML IV SCH; -PROPOFOL 200 MG/20 ML VIAL As Ordered ONE; -QUIN1TAB15 PO; +QUIN1TAB4 PO
== END ==
LOC: M SMT 12:57
PROVIDERS: ATTEND Nurse Practitioner Family
DX: R97.20 Elevated prostate specific antigen [PSA] (principal); Z79.899 Other long term (current) drug therapy
CPT/HCPCS: 87086; G0463

== ENCOUNTER → 2019-10-16 | Outpatient (CLI) | payer MEDICARE, OTHER ==
[2019-10-20 04:07] LABS: PSA % FREE 11.9 % (.); PSA FREE 0.56 ng/mL; PSA TOTAL 4.7 ng/mL (0.0-4.0)
== END ==
LOC: M LAB 12:52
PROVIDERS: ATTEND Nurse Practitioner Family
DX: R97.20 Elevated prostate specific antigen [PSA] (principal)

== ENCOUNTER → 2020-05-03 | Outpatient (REF) | payer MEDICARE, OTHER ==
[2020-05-05 01:06] LABS: PSA TOTAL 2.2 ng/mL (0.0-4.0)
== END ==
LOC: M PLALAB 09:38
PROVIDERS: ATTEND Nurse Practitioner Family
DX: R97.20 Elevated prostate specific antigen [PSA] (principal)

== ENCOUNTER 2023-01-10 08:48 | Day surgery (SDC) | payer MEDICARE, OTHER ==
[~2023-01-10] VITALS: Ht 185.4 cm; Wt 108.7 kg
[~2023-01-10 08:48] MED LIST changes: -DOXY-350 PO; +DOXY-444 PO; +ELIQ5TAB PO; +ISOS1TAB35 PO; -ISOS30TA4 PO; +LISI20TA33 PO; +MULT-90 PO; +NS 1,000 ML IV ONE; -TERB250T12 PO; +TERB250T91 PO; +TRUL10IN SC
[2023-01-10 10:17] VITALS: TEMP 98.6
[2023-01-10 10:37] VITALS: BP 143/98; O2SAT 98
== END 2023-01-10 10:52 | disposition home or self-care (01) ==
LOC: M OPP 08:48
PROVIDERS: ATTEND Surgery
DX: D12.4 Benign neoplasm of descending colon (principal); K57.30 Diverticulosis of large intestine without perforation or abscess without bleeding; C11.9 Malignant neoplasm of nasopharynx, unspecified; I25.10 Atherosclerotic heart disease of native coronary artery without angina pectoris; I25.2 Old myocardial infarction; I48.91 Unspecified atrial fibrillation; Z86.010 Personal history of colon polyps; Z86.73 Personal history of transient ischemic attack (TIA), and cerebral infarction without residual deficits; Z95.5 Presence of coronary angioplasty implant and graft

== ENCOUNTER → 2023-01-25 | Outpatient (REF) | payer MEDICARE, OTHER ==
[~2023-01-25] MED LIST changes: -NS 1,000 ML IV ONE
== END ==
LOC: M SMT PRO 13:09
PROVIDERS: ATTEND Urology
DX: C61 Malignant neoplasm of prostate (principal); R97.20 Elevated prostate specific antigen [PSA]; E11.9 Type 2 diabetes mellitus without complications; Z79.01 Long term (current) use of anticoagulants; Z79.899 Other long term (current) drug therapy; Z80.9 Family history of malignant neoplasm, unspecified; Z88.8 Allergy status to other drugs, medicaments and biological substances

== ENCOUNTER → 2023-02-07 | Outpatient (CLI) | payer MEDICARE, OTHER ==
[~2023-02-07] MED LIST changes: +ISOVUE-370 76% 100ML VIAL As Ordered ONE
== END ==
LOC: M RAD 08:05
PROVIDERS: ATTEND Urology
DX: C61 Malignant neoplasm of prostate (principal); N20.0 Calculus of kidney; I70.0 Atherosclerosis of aorta; K76.0 Fatty (change of) liver, not elsewhere classified
CPT/HCPCS: 74177; 78306; A9503; Q9967

== ENCOUNTER → 2023-03-08 | Outpatient (CLI) | payer MEDICARE, OTHER ==
[~2023-03-08] MED LIST changes: +BICA50TA9 PO; +EZET10TA21; -ISOVUE-370 76% 100ML VIAL As Ordered ONE
== END ==
LOC: M ONCR 13:12
PROVIDERS: ATTEND General Practice
DX: C61 Malignant neoplasm of prostate (principal); R97.20 Elevated prostate specific antigen [PSA]; Z71.2 Person consulting for explanation of examination or test findings; Z79.01 Long term (current) use of anticoagulants; Z79.85 Long-term (current) use of injectable non-insulin antidiabetic drugs; Z79.899 Other long term (current) drug therapy; Z88.8 Allergy status to other drugs, medicaments and biological substances

== ENCOUNTER 2023-03-21 10:15 | Outpatient (RCR) | payer MEDICARE, OTHER ==
[2023-04-09] MEDS ORDERED: BICA50TA9 PO (17:13)
[2023-05-01] MEDS ORDERED: METO1TAB87 PO (15:26)
== END 2023-04-04 ==
LOC: M ONCR 10:15
PROVIDERS: ATTEND General Practice
DX: Z51.0 Encounter for antineoplastic radiation therapy (principal); C61 Malignant neoplasm of prostate

== ENCOUNTER → 2023-04-10 | Outpatient (CLI) | payer MEDICARE, OTHER ==
[~2023-04-10] MED LIST changes: +LEUPROLIDE 45MG SYRINGE KIT (LUPRON DEPOT) (FOR ONCOLOGY) IM ONE
[2023-04-10 15:44] VITALS: BP 142/80; O2SAT 98
== END ==
LOC: M ONCR 09:03
PROVIDERS: ATTEND General Practice
DX: C61 Malignant neoplasm of prostate (principal); Z79.818 Long term (current) use of other agents affecting estrogen receptors and estrogen levels; Z71.89 Other specified counseling
CPT/HCPCS: 96402; G0463; J9217

== ENCOUNTER 2023-05-03 14:27 | Outpatient (RCR) | payer MEDICARE, OTHER ==
[~2023-05-03 14:27] MED LIST changes: -LEUPROLIDE 45MG SYRINGE KIT (LUPRON DEPOT) (FOR ONCOLOGY) IM ONE; +METO1TAB87 PO
== END 2023-05-05 ==
LOC: M ONCR 14:27
PROVIDERS: ATTEND General Practice
DX: Z51.0 Encounter for antineoplastic radiation therapy (principal); C61 Malignant neoplasm of prostate

== ENCOUNTER → 2023-05-14 | Outpatient (REF) | payer MEDICARE, OTHER ==
[2023-05-14 17:18] LABS: BASO # 0.1 10^3/uL (0.0-0.2); BASO % 0.9 % (0.0-1.0); EOS # 0.1 10^3/uL (0.0-0.5); HEMATOCRIT 46.2 % (42.0-52.0); HEMOGLOBIN 14.8 g/dl (13.5-17.5); LYMPH # 0.2 10^3/uL (1.5-5.0); LYMPH % 3.7 % (24.0-44.0); MEAN CORPUSCULAR HEMOGLOBIN 30.8 pg (27.0-33.0); MEAN CORPUSCULAR VOLUME 96.3 fl (80.0-96.0); MONO # 0.5 10^3/uL (0.0-0.8); MONO % 9.4 % (2.0-8.0); NEUTROPHILS # 4.7 10^3/uL (1.5-8.5); NEUTROPHILS % 83.6 % (36.0-66.0); PLATELET COUNT, AUTOMATED 205 10^3/uL (150-450); WHITE BLOOD COUNT 5.6 10^3/uL (4.0-10.0)
[2023-05-14 17:33] LABS: BLOOD UREA NITROGEN 20 MG/DL (9-23); CALCIUM LEVEL 9.4 MG/DL (8.3-10.6); CARBON DIOXIDE LEVEL 27 MMOL/L (20-31); CHLORIDE LEVEL 103 MMOL/L (98-107); CREATININE FOR GFR 1.01 MG/DL (0.70-1.30); GLOMERULAR FILTRATION RATE > 60.0 (>42); GLUCOSE, FASTING 135 MG/DL (74-106); POTASSIUM SERUM 4.8 MMOL/L (3.5-5.1); SODIUM LEVEL 137 MMOL/L (136-145)
== END ==
LOC: M LAB REF 16:35
PROVIDERS: ATTEND Family Medicine
DX: I10 Essential (primary) hypertension (principal); I25.10 Atherosclerotic heart disease of native coronary artery without angina pectoris; I48.91 Unspecified atrial fibrillation

== ENCOUNTER 2023-05-24 14:26 | Outpatient (RCR) | payer MEDICARE, OTHER | END 2023-06-05 | LOC: M ONCR 14:26 | PROVIDERS: ATTEND General Practice | DX: Z51.0 Encounter for antineoplastic radiation therapy (principal); C61 Malignant neoplasm of prostate ==

== ENCOUNTER → 2023-08-23 | Outpatient (CLI) | payer MEDICARE, OTHER ==
[2023-08-23 13:18] LABS: PROSTATIC SPECIFIC AG MONITOR 0.14 NG/ML (< 4.00)
== END ==
LOC: M PLALAB 09:27
PROVIDERS: ATTEND General Practice
DX: C61 Malignant neoplasm of prostate (principal)

== ENCOUNTER → 2023-08-27 | Outpatient (CLI) | payer MEDICARE, OTHER | LOC: M ONCR 13:48 | PROVIDERS: ATTEND General Practice | DX: C61 Malignant neoplasm of prostate (principal); Z71.2 Person consulting for explanation of examination or test findings; Z79.01 Long term (current) use of anticoagulants; Z79.85 Long-term (current) use of injectable non-insulin antidiabetic drugs; Z79.899 Other long term (current) drug therapy; Z92.3 Personal history of irradiation ==

== ENCOUNTER → 2023-10-08 | Outpatient (CLI) | payer MEDICARE, OTHER ==
[~2023-10-08] MED LIST changes: +BICA50TA4 PO; -BICA50TA9 PO; +DOXY-440 PO; -DOXY-444 PO; +VENL75CA47 PO
[2023-10-08] MEDS: LEUPROLIDE 45MG SYRINGE KIT (LUPRON DEPOT) (FOR ONCOLOGY) IM ONE (14:45)
== END ==
LOC: M ONCR 13:54
PROVIDERS: ATTEND General Practice
DX: C61 Malignant neoplasm of prostate (principal); R23.2 Flushing; Z71.2 Person consulting for explanation of examination or test findings; Z79.818 Long term (current) use of other agents affecting estrogen receptors and estrogen levels; Z88.8 Allergy status to other drugs, medicaments and biological substances; Z79.899 Other long term (current) drug therapy; Z79.85 Long-term (current) use of injectable non-insulin antidiabetic drugs; Z79.01 Long term (current) use of anticoagulants; Z92.3 Personal history of irradiation
CPT/HCPCS: 96402; G0463; J9217

== ENCOUNTER 2023-11-01 18:04 | Emergency (ER) | payer MEDICARE, OTHER ==
[~2023-11-01] VITALS: Ht 185.4 cm; Wt 113.6 kg
[2023-11-01] MEDS ORDERED: ZYRTTAB8 PO (18:25)
[2023-11-01] MEDS ORDERED: DILT60CASR PO (18:25)
[2023-11-01 19:13] LABS: BASO # 0.1 10^3/uL (0.0-0.2); BASO % 0.9 % (0.0-1.0); EOS # 0.2 10^3/uL (0.0-0.5); EOS % 3.4 % (0.0-3.0); HEMATOCRIT 41.7 % (42.0-52.0); LYMPH % 14.9 % (24.0-44.0); MEAN CORPUSCULAR HEMOGLOBIN 32.3 pg (27.0-33.0); MEAN CORPUSCULAR HGB CONC 33.6 g/dl (32.0-36.5); MEAN CORPUSCULAR VOLUME 96.3 fl (80.0-96.0); MONO # 0.7 10^3/uL (0.0-0.8); MONO % 10.3 % (2.0-8.0); NEUTROPHILS # 4.6 10^3/uL (1.5-8.5); NEUTROPHILS % 70.2 % (36.0-66.0); PLATELET COUNT, AUTOMATED 218 10^3/uL (150-450); RED BLOOD COUNT 4.33 10^6/uL (4.30-6.10); WHITE BLOOD COUNT 6.5 10^3/uL (4.0-10.0)
[2023-11-01 19:27] LABS: INR 1.55; PROTHROMBIN TIME 18.1 SECONDS (12.5-14.5)
[2023-11-01 19:40] LABS: CK-MB VALUE MASS 4.8 NG/ML (<3.6)
[2023-11-01 19:41] LABS: BLOOD UREA NITROGEN 22 MG/DL (9-23); CALCIUM LEVEL 9.2 MG/DL (8.3-10.6); CARBON DIOXIDE LEVEL 24 MMOL/L (20-31); CHLORIDE LEVEL 108 MMOL/L (98-107); CREATININE FOR GFR 0.77 MG/DL (0.70-1.30); GLOMERULAR FILTRATION RATE > 60.0 (>42); GLUCOSE, FASTING 131 MG/DL (74-106); MAGNESIUM LEVEL 1.9 MG/DL (1.8-2.4); POTASSIUM SERUM 4.4 MMOL/L (3.5-5.1); SODIUM LEVEL 140 MMOL/L (136-145)
[2023-11-01] MEDS: NS 500 ML IV ONE (19:45)
[2023-11-01 19:48] LABS: CPK CREATINE PHOSPHOKINASE 99 U/L (46-171); MB/CK RELATIVE INDEX 4.84 (< OR =4)
[2023-11-01] MEDS ORDERED: ISOVUE-370 76% 100ML VIAL As Ordered ONE (19:55)
[2023-11-01] MEDS: dilTIAZem 25MG/5ML VIAL IV STA (19:59)
[2023-11-01] MEDS: ASPIRIN 81MG CHEW TABLET PO ONE (20:15)
[2023-11-01 20:55] LABS: CK-MB VALUE MASS 5.2 NG/ML (<3.6)
[2023-11-01 21:19] LABS: MB/CK RELATIVE INDEX 6.11 (< OR =4)
[2023-11-01] MEDS ORDERED: HEPARIN SOD (PORCINE) 5000UNITS/ML 1ML VIAL/SYRINGE IV PRN (21:55)
[2023-11-01] MEDS ORDERED: MED REC IN PROGRESS XX SCH (22:00)
[2023-11-01] MEDS: HEPARIN DRIP 25,000 UNITS in IV 1 EA IV SCH (22:15)
[2023-11-01] MEDS: CLOPIDOGREL 300 MG TAB (PLAVIX) PO STA (22:15)
[2023-11-01] MEDS: NITROGLYCERIN 2% OINT 1 GM *U/D* PKT TOP ONE (22:15)
[2023-11-01] MEDS ORDERED: VENL75CA47 PO (22:32)
[2023-11-01] MEDS ORDERED: FURO20TA2 PO (22:32)
[2023-11-01] MEDS ORDERED: IPRA6SP NARES (22:32)
[2023-11-01] MEDS ORDERED: CETI5TA PO (22:32)
[2023-11-01] MEDS ORDERED: LISI10TA22 PO ×2 (22:32)
[2023-11-01] MEDS ORDERED: IBUP-1720 PO (22:36)
[2023-11-01] MEDS ORDERED: HOME MED LIST COMPLETE! XX SCH (22:40)
[2023-11-02] MEDS: LABETALOL 100MG/20ML VIAL IV STA (05:00)
[2023-11-02 11:16] VITALS: BP 160/98; TEMP 97.7; O2SAT 96
== END 2023-11-02 11:36 | disposition short-term general hospital (02) ==
LOC: M ED 18:04
DX: I51.7 Cardiomegaly (principal); I21.4 Non-ST elevation (NSTEMI) myocardial infarction; I10 Essential (primary) hypertension; I48.91 Unspecified atrial fibrillation; I25.10 Atherosclerotic heart disease of native coronary artery without angina pectoris; I25.2 Old myocardial infarction; E11.9 Type 2 diabetes mellitus without complications; Z86.73 Personal history of transient ischemic attack (TIA), and cerebral infarction without residual deficits; Z85.46 Personal history of malignant neoplasm of prostate; Z79.01 Long term (current) use of anticoagulants; Z79.899 Other long term (current) drug therapy; Z88.8 Allergy status to other drugs, medicaments and biological substances
CPT/HCPCS: 71045; 71275; 80048; 82550; 82553; 83735; 83880; 84484; 85025; 85610; 85730; 93005; 93041; 94760; 96361; 96374; 96375; 99285; J1920; Q9967

== ENCOUNTER 2023-12-10 11:24 | Day surgery (SDC) | payer MEDICARE, OTHER ==
[~2023-12-10] VITALS: Ht 185.4 cm; Wt 107.0 kg
[~2023-12-10 11:24] MED LIST changes: +CETI5TA PO; +DILT60CASR PO; +FURO20TA2 PO; +IBUP-1720 PO; +IPRA6SP NARES; +LISI10TA22 PO; +ZYRTTAB8 PO
[2023-12-10] MEDS ORDERED: MIDAZOLAM INJ 2MG/2ML VIAL As Ordered ONE (12:48)
[2023-12-10] MEDS ORDERED: fentaNYL 100 MCG/2 ML INJECTION As Ordered ONE (12:49)
[2023-12-10] MEDS ORDERED: LIDOCAINE 2% 100MG/5ML SDV (FOR ANES.) As Ordered ONE (12:50)
[2023-12-10] MEDS ORDERED: propofoL 500 MG/50 ML VIAL As Ordered ONE (12:50)
[2023-12-10 13:09] LABS: HEMATOCRIT 31.4 % (42.0-52.0); HEMOGLOBIN 9.9 g/dl (13.5-17.5); MEAN CORPUSCULAR HEMOGLOBIN 32.4 pg (27.0-33.0); MEAN CORPUSCULAR HGB CONC 31.5 g/dl (32.0-36.5); MEAN CORPUSCULAR VOLUME 102.6 fl (80.0-96.0); PLATELET COUNT, AUTOMATED 264 10^3/uL (150-450); RED BLOOD COUNT 3.06 10^6/uL (4.30-6.10); WHITE BLOOD COUNT 4.9 10^3/uL (4.0-10.0)
[2023-12-10] MEDS ORDERED: ceFAZolin SOD 2 GM in IV 1 EA IV ONE (13:20)
[2023-12-10 13:36] LABS: BLOOD UREA NITROGEN 23 MG/DL (9-23); CALCIUM LEVEL 9.2 MG/DL (8.3-10.6); CARBON DIOXIDE LEVEL 26 MMOL/L (20-31); CHLORIDE LEVEL 109 MMOL/L (98-107); CREATININE FOR GFR 0.96 MG/DL (0.70-1.30); GLOMERULAR FILTRATION RATE > 60.0 (>42); GLUCOSE, FASTING 100 MG/DL (74-106); POTASSIUM SERUM 4.7 MMOL/L (3.5-5.1); SODIUM LEVEL 138 MMOL/L (136-145)
[2023-12-10] MEDS: ceFAZolin 2 GM/D5W 50 ML IV BAG As Ordered ONE (13:36)
[2023-12-10] MEDS: LIDOCAINE 1% SDV 30ML VIAL As Ordered ONE (13:53)
[2023-12-10] MEDS: AMIODARONE HCL 150 MG/100 ML PREMIXED BAG (NEXTERONE) As Ordered ONE (16:54)
[2023-12-10] MEDS: ceFAZolin 1GM VIAL As Ordered ONE (17:06)
[2023-12-10] MEDS ORDERED: fentaNYL 100 MCG/2 ML INJECTION IV PRN (17:30)
[2023-12-10] MEDS ORDERED: HYDROMORPHONE HCL 0.5 MG/ 0.5 ML SYRINGE IV PRN (17:30)
[2023-12-10] MEDS ORDERED: LR 1,000 ML IV SCH (17:30)
[2023-12-10] MEDS ORDERED: oxyCODONE 5MG TAB PO PRN (17:30)
[2023-12-10] MEDS ORDERED: ONDANSETRON 4MG 2ML VIAL IV PRN (17:30)
[2023-12-10 18:45] VITALS: BP 153/83; TEMP 97.9; O2SAT 100
== END 2023-12-10 18:52 | disposition home or self-care (01) ==
LOC: M SDC 11:24
PROVIDERS: ATTEND Internal Medicine Cardiovascular Disease
DX: I48.0 Paroxysmal atrial fibrillation (principal); E11.9 Type 2 diabetes mellitus without complications; I25.2 Old myocardial infarction; Z98.61 Coronary angioplasty status; Z95.1 Presence of aortocoronary bypass graft; Z79.01 Long term (current) use of anticoagulants; Z85.46 Personal history of malignant neoplasm of prostate; Z86.73 Personal history of transient ischemic attack (TIA), and cerebral infarction without residual deficits; Z79.899 Other long term (current) drug therapy
CPT/HCPCS: 33208; 36415; 71045; 76000; 80048; 85027; 93005; C1785; C1898; J0283; J0690; J2250; J3010

== ENCOUNTER → 2024-01-13 | Outpatient (CLI) | payer MEDICARE, OTHER ==
[~2024-01-13] MED LIST changes: -BYST10TA2 PO; +BYST1TAB3 PO
[2024-01-13 13:27] LABS: BASO # 0.1 10^3/uL (0.0-0.2); EOS # 0.3 10^3/uL (0.0-0.5); EOS % 5.4 % (0.0-3.0); HEMATOCRIT 31.6 % (42.0-52.0); HEMOGLOBIN 10.3 g/dl (13.5-17.5); LYMPH # 0.7 10^3/uL (1.5-5.0); LYMPH % 14.3 % (24.0-44.0); MEAN CORPUSCULAR HEMOGLOBIN 32.7 pg (27.0-33.0); MEAN CORPUSCULAR HGB CONC 32.6 g/dl (32.0-36.5); MEAN CORPUSCULAR VOLUME 100.3 fl (80.0-96.0); MONO # 0.5 10^3/uL (0.0-0.8); MONO % 10.7 % (2.0-8.0); NEUTROPHILS # 3.4 10^3/uL (1.5-8.5); NEUTROPHILS % 68.2 % (36.0-66.0); PLATELET COUNT, AUTOMATED 228 10^3/uL (150-450); RED BLOOD COUNT 3.15 10^6/uL (4.30-6.10)
[2024-01-13 13:32] LABS: ALBUMIN 3.6 G/DL (3.2-5.2); ALKALINE PHOSPHATASE 129 U/L (46-116); ALT/SGPT 12 U/L (7.0-40); AST/SGOT 19 U/L (<34); BILIRUBIN,TOTAL 0.5 MG/DL (0.3-1.2); BLOOD UREA NITROGEN 22 MG/DL (9-23); CALCIUM LEVEL 9.4 MG/DL (8.3-10.6); CARBON DIOXIDE LEVEL 29 MMOL/L (20-31); CHLORIDE LEVEL 105 MMOL/L (98-107); GLOMERULAR FILTRATION RATE > 60.0 (>42); GLUCOSE, FASTING 103 MG/DL (74-106); POTASSIUM SERUM 4.8 MMOL/L (3.5-5.1); SODIUM LEVEL 138 MMOL/L (136-145); TOTAL PROTEIN 6.8 G/DL (5.7-8.2)
[2024-01-13 13:33] LABS: THYROID STIMULATING HORMONE 5.913 uIU/ML (0.55-4.78)
== END ==
LOC: M PLALAB 11:08
PROVIDERS: ATTEND Internal Medicine Cardiovascular Disease
DX: I48.19 Other persistent atrial fibrillation (principal); I50.22 Chronic systolic (congestive) heart failure; I25.10 Atherosclerotic heart disease of native coronary artery without angina pectoris; I11.0 Hypertensive heart disease with heart failure

== ENCOUNTER → 2024-01-16 | Outpatient (CLI) | payer MEDICARE, OTHER | LOC: M PLAIMG 10:26 | PROVIDERS: ATTEND Internal Medicine Cardiovascular Disease | DX: I50.22 Chronic systolic (congestive) heart failure (principal); I27.20 Pulmonary hypertension, unspecified; I08.3 Combined rheumatic disorders of mitral, aortic and tricuspid valves ==

== ENCOUNTER → 2024-01-30 | Outpatient (REF) | payer MEDICARE, OTHER ==
[2024-01-30 12:46] LABS: FERRITIN 61.5 NG/ML (10.5-307.3); IRON (FE) 41 UG/DL (65-175); PERCENT SATURATION 12.5 % (19.7-50.0); TOTAL IRON BINDING CAPACITY 327 UG/DL (250-425)
[2024-01-30 12:47] LABS: FOLATE > 24.0 NG/ML (>5.4); VITAMIN B12 LEVEL 464 PG/ML (211-911)
== END ==
LOC: M LAB REF 11:45
PROVIDERS: ATTEND Family Medicine
DX: D64.9 Anemia, unspecified (principal)

== ENCOUNTER → 2024-03-18 | Outpatient (CLI) | payer MEDICARE, OTHER ==
[2024-03-18 12:16] LABS: ALBUMIN 3.7 G/DL (3.2-5.2); ALKALINE PHOSPHATASE 102 U/L (40-129); ALT/SGPT 17 U/L (7.0-40); AST/SGOT 18 U/L (<34); BILIRUBIN,TOTAL 0.6 MG/DL (0.3-1.2); BLOOD UREA NITROGEN 25 MG/DL (9-23); CALCIUM LEVEL 9.7 MG/DL (8.3-10.6); CARBON DIOXIDE LEVEL 27 MMOL/L (20-31); CHLORIDE LEVEL 110 MMOL/L (98-107); CREATININE FOR GFR 1.08 MG/DL (0.70-1.30); FREE T4 1.28 NG/DL (0.89-1.76); GLOMERULAR FILTRATION RATE > 60.0 (>42); GLUCOSE, FASTING 116 MG/DL (74-106); MAGNESIUM LEVEL 2.3 MG/DL (1.8-2.4); POTASSIUM SERUM 4.9 MMOL/L (3.5-5.1); SODIUM LEVEL 141 MMOL/L (136-145); THYROID STIMULATING HORMONE 5.964 uIU/ML (0.55-4.78)
== END ==
LOC: M PLALAB 08:15
PROVIDERS: ATTEND Registered Nurse
DX: I48.19 Other persistent atrial fibrillation (principal)

== ENCOUNTER → 2024-03-26 | Outpatient (CLI) | payer MEDICARE, OTHER | LOC: M PLALAB 08:09 | PROVIDERS: ATTEND General Practice | DX: C61 Malignant neoplasm of prostate (principal) ==

== ENCOUNTER → 2024-04-08 | Outpatient (CLI) | payer MEDICARE, OTHER ==
[~2024-04-08] MED LIST changes: +LEUPROLIDE 45MG SYRINGE KIT (LUPRON DEPOT) IM ONE
== END ==
LOC: M ONCR 13:47
PROVIDERS: ATTEND General Practice
DX: C61 Malignant neoplasm of prostate (principal); K64.9 Unspecified hemorrhoids; Z88.8 Allergy status to other drugs, medicaments and biological substances; Z79.85 Long-term (current) use of injectable non-insulin antidiabetic drugs; Z79.899 Other long term (current) drug therapy; Z92.29 Personal history of other drug therapy; Z92.3 Personal history of irradiation; Z95.0 Presence of cardiac pacemaker

== ENCOUNTER → 2024-08-06 | Outpatient (REF) | payer MEDICARE, OTHER ==
[~2024-08-06] MED LIST changes: -LEUPROLIDE 45MG SYRINGE KIT (LUPRON DEPOT) IM ONE
== END ==
LOC: M LAB REF 11:59
PROVIDERS: ATTEND Family Medicine
DX: D50.9 Iron deficiency anemia, unspecified (principal)

== ENCOUNTER → 2024-08-10 | Outpatient (REF) | payer MEDICARE, OTHER ==
[2024-08-10 12:56] LABS: PERCENT SATURATION 12.4 % (19.7-50.0)
[2024-08-10 12:58] LABS: FOLATE 13.8 NG/ML (>5.4)
== END ==
LOC: M LAB REF 12:05
PROVIDERS: ATTEND Family Medicine
DX: D64.9 Anemia, unspecified (principal)

== ENCOUNTER 2024-11-19 10:16 | Inpatient (IN) | payer MEDICARE, OTHER ==
[~2024-11-19] VITALS: Ht 185.4 cm; Wt 120.0 kg
[~2024-11-19 10:16] MED LIST changes: +IPRA6SP; +LEVO50TA5 PO
[2024-11-19 12:16] LABS: BASO # 0.1 10^3/uL (0.0-0.2); BASO % 1.2 % (0.0-1.0); EOS # 0.1 10^3/uL (0.0-0.5); EOS % 1.4 % (0.0-3.0); LYMPH # 0.6 10^3/uL (1.5-5.0); LYMPH % 10.6 % (24.0-44.0); MONO # 0.6 10^3/uL (0.0-0.8); MONO % 9.7 % (2.0-8.0); NEUTROPHILS # 4.5 10^3/uL (1.5-8.5); NEUTROPHILS % 76.4 % (36.0-66.0); PLATELET COUNT, AUTOMATED 156 10^3/uL (150-450)
[2024-11-19 12:37] LABS: PLATELET ESTIMATE NORMAL (NORMAL)
[2024-11-19 12:43] LABS: ALT/SGPT 20.0 U/L (7.0-40); AST/SGOT 30.0 U/L (<34); CK-MB VALUE MASS 4.0 NG/ML (<3.6); CPK CREATINE PHOSPHOKINASE 74.0 U/L (46-171); MB/CK RELATIVE INDEX 5.4 (< OR =4)
[2024-11-19] MEDS: NS (Normal Saline) 0.9% 1,000 ML IV SCH (12:55)
[2024-11-19] MEDS: ONDANSETRON 4MG 2ML VIAL IV ONE (12:56)
[2024-11-19] MEDS: MORPHINE 4 MG/ML 1 ML VIAL IV ONE (12:58)
[2024-11-19] MEDS ORDERED: MAGN400T35 (13:12)
[2024-11-19] MEDS ORDERED: LISI5TAB11 PO (13:12)
[2024-11-19] MEDS ORDERED: FERR325T19 PO (13:12)
[2024-11-19] MEDS ORDERED: ASPI-226 PO (13:12)
[2024-11-19 13:44] LABS: INR 1.34
[2024-11-19] MEDS ORDERED: ONDANSETRON 4MG 2ML VIAL IV PRN (15:15)
[2024-11-19 15:22] LABS: CALCIUM LEVEL 9.1 MG/DL (8.3-10.6); CARBON DIOXIDE LEVEL 23 MMOL/L (20-31); CHLORIDE LEVEL 108 MMOL/L (98-107); CREATININE FOR GFR 0.84 MG/DL (0.70-1.30); GLOMERULAR FILTRATION RATE > 90.0 (>42); POTASSIUM SERUM 4.4 MMOL/L (3.5-5.1); SODIUM LEVEL 143 MMOL/L (136-145)
[2024-11-19] MEDS ORDERED: MAG100TA PO (15:42)
[2024-11-19] MEDS ORDERED: HOME MED LIST COMPLETE! XX SCH (15:45)
[2024-11-19] MEDS: MORPHINE 2 MG/ML 1 ML VIAL IV PRN ×2 (16:47→22:30)
[2024-11-19] MEDS ORDERED: GLUCOSE 4 GM CHEW PO PRN (21:15)
[2024-11-19] MEDS ORDERED: DEXTROSE 50% 50 ML SYRINGE IV PRN (21:15)
[2024-11-19] MEDS ORDERED: GLUCAGON INJ 1 MG VIAL SC PRN (21:15)
[2024-11-19] MEDS ORDERED: IPRATROPIUM 0.06% NASAL SPRAY 15 ML (ATROVENT) PRN (21:15)
[2024-11-19 22:18] VITALS: BP 137/89; TEMP 97.9; O2SAT 97
[2024-11-19] MEDS: INSULIN LISPRO (NovoLOG) PER UNIT SC SCH (23:57)
[2024-11-20 04:28] VITALS: BP 136/90; TEMP 98.1; O2SAT 97
[2024-11-20] MEDS: LEVOTHYROXINE 50 MCG TABLET (0.05 MG) PO SCH (06:00)
[2024-11-20 06:12] LABS: CALCIUM LEVEL 8.8 MG/DL (8.3-10.6); CARBON DIOXIDE LEVEL 23.0 MMOL/L (20-31); CHLORIDE LEVEL 108.0 MMOL/L (98-107); CREATININE FOR GFR 0.88 MG/DL (0.70-1.30); GLOMERULAR FILTRATION RATE 89.1 (>42); MAGNESIUM LEVEL 1.9 MG/DL (1.8-2.4); POTASSIUM SERUM 4.4 MMOL/L (3.5-5.1); SODIUM LEVEL 141.0 MMOL/L (136-145)
[2024-11-20 06:15] LABS: PLATELET COUNT, AUTOMATED 150 10^3/uL (150-450)
[2024-11-20] MEDS ORDERED: LIDOCAINE 2% 100 MG/5 ML SDV (FOR ANES.) As Ordered ONE (06:36)
[2024-11-20] MEDS ORDERED: GLYCOPYRROLATE INJ 0.2 MG/ML 2 ML VIAL As Ordered ONE (06:36)
[2024-11-20] MEDS ORDERED: ONDANSETRON 4MG 2ML VIAL As Ordered ONE (06:37)
[2024-11-20] MEDS ORDERED: dexAMETHasone 4 MG/ML 1 ML VIAL As Ordered ONE (06:37)
[2024-11-20] MEDS ORDERED: MIDAZOLAM INJ 2 MG/2 ML VIAL As Ordered ONE (06:39)
[2024-11-20] MEDS ORDERED: ACETAMINOPHEN 1000MG/100ML IV BAG As Ordered ONE (06:41)
[2024-11-20] MEDS ORDERED: KETAMINE HCL 200 MG/20 ML VIAL As Ordered ONE (07:14)
[2024-11-20] MEDS ORDERED: PHENYLephrine 500MCG 5ML (100MCG/ML) SYRINGE As Ordered ONE (08:24)
[2024-11-20] MEDS ORDERED: ONDANSETRON 4MG 2ML VIAL IV PRN (08:55)
[2024-11-20] MEDS ORDERED: HYDROMORPHONE HCL 0.5 MG/0.5 ML SYRINGE IV PRN (08:55)
[2024-11-20] MEDS: LR 1,000 ML IV ONE (09:19)
[2024-11-20 12:00] VITALS: BP 133/87; TEMP 98.1; O2SAT 97
[2024-11-20] MEDS: LR 1,000 ML IV SCH (13:50)
[2024-11-20 14:12] VITALS: BP 133/84
[2024-11-20 14:41] LABS: BASO # 0.1 10^3/uL (0.0-0.2); BASO % 1.1 % (0.0-1.0); EOS # 0.3 10^3/uL (0.0-0.5); EOS % 2.9 % (0.0-3.0); LYMPH # 0.8 10^3/uL (1.5-5.0); LYMPH % 9.6 % (24.0-44.0); MONO # 1.0 10^3/uL (0.0-0.8); MONO % 11.1 % (2.0-8.0); NEUTROPHILS # 6.4 10^3/uL (1.5-8.5); NEUTROPHILS % 75.1 % (36.0-66.0); PLATELET COUNT, AUTOMATED 159 10^3/uL (150-450)
[2024-11-20 15:16] LABS: PLATELET ESTIMATE NORMAL (NORMAL)
[2024-11-20] MEDS ORDERED: OXYC1TAB23 PO (15:49)
[2024-11-20] MEDS: ceFAZolin SODIUM 2 GM in DEXTROSE 5% (D5W) ADV/MINI-BAG 50 ML IV SCH (16:30)
== END 2024-11-20 17:36 | DRG 482 ==
LOC: M ED 10:16 → EDBD 10:16 → M ED INP 14:27 → M MSPAV 21:46
PROVIDERS: ADMIT Internal Medicine; ATTEND Internal Medicine
PROC: 0QS636Z Reposition Right Upper Femur with Intramedullary Internal Fixation Device, Percutaneous Approach (ICD-10-PCS; principal; 2024-11-20 07:30)
DX: S72.141A Displaced intertrochanteric fracture of right femur, initial encounter for closed fracture (principal); W01.0XXA Fall on same level from slipping, tripping and stumbling without subsequent striking against object, initial encounter; Y92.002 Bathroom of unspecified non-institutional (private) residence as the place of occurrence of the external cause; I48.0 Paroxysmal atrial fibrillation; Z92.3 Personal history of irradiation; I25.10 Atherosclerotic heart disease of native coronary artery without angina pectoris; Z95.5 Presence of coronary angioplasty implant and graft; E11.9 Type 2 diabetes mellitus without complications; I10 Essential (primary) hypertension; E78.5 Hyperlipidemia, unspecified; E03.9 Hypothyroidism, unspecified; Z95.0 Presence of cardiac pacemaker; D50.9 Iron deficiency anemia, unspecified; Z79.82 Long term (current) use of aspirin; Z79.890 Hormone replacement therapy; Z79.899 Other long term (current) drug therapy; Z86.73 Personal history of transient ischemic attack (TIA), and cerebral infarction without residual deficits; Z88.6 Allergy status to analgesic agent; Z85.46 Personal history of malignant neoplasm of prostate

== ENCOUNTER 2024-11-20 14:11 | Inpatient (IN) | payer MEDICARE, OTHER ==
[~2024-11-20] VITALS: Ht 185.4 cm; Wt 120.3 kg
[~2024-11-20 14:11] MED LIST changes: +ASPI-226 PO; +FERR325T19 PO; +LISI5TAB11 PO; +MAG100TA PO; +MAGN400T35
[2024-11-20] MEDS ORDERED: ONDANSETRON 4MG ORAL DISINTEGRATING TAB SL PRN (14:45)
[2024-11-20] MEDS ORDERED: GLUCOSE 4 GM CHEW PO PRN (14:45)
[2024-11-20] MEDS ORDERED: BISACODYL 10 MG SUPP PR PRN (14:45)
[2024-11-20] MEDS ORDERED: GLUCAGON INJ 1 MG VIAL SC PRN (14:45)
[2024-11-20] MEDS ORDERED: DEXTROSE 50% 50 ML SYRINGE IV PRN (14:45)
[2024-11-20] MEDS ORDERED: MAALOX 30 ML SUSP *UDC PO PRN (14:45)
[2024-11-20] MEDS ORDERED: IPRATROPIUM 0.06% NASAL SPRAY 15 ML (ATROVENT) PRN (14:45)
[2024-11-20] MEDS ORDERED: OXYC1TAB23 PO (15:49)
[2024-11-20 18:17] VITALS: BP 136/74; TEMP 99.1; O2SAT 96
[2024-11-20] MEDS: INSULIN LISPRO (NovoLOG) PER UNIT SC SCH ×2 (18:52→20:39)
[2024-11-20 20:00] VITALS: BP 122/63; TEMP 98.2; O2SAT 96
[2024-11-20] MEDS: SENNA 8.6 MG TAB PO SCH (20:52)
[2024-11-20] MEDS: MAGNESIUM GLUCONATE 500 MG TAB PO SCH (20:52)
[2024-11-20] MEDS: ACETAMINOPHEN 500 MG TAB PO SCH (20:53)
[2024-11-20] MEDS: DOCUSATE SODIUM 100 MG CAPSULE PO SCH (21:00)
[2024-11-21] MEDS: ceFAZolin SODIUM 2 GM in DEXTROSE 5% (D5W) ADV/MINI-BAG 50 ML IV ONE (01:01)
[2024-11-21 04:00] VITALS: BP 123/75; TEMP 97; O2SAT 99
[2024-11-21] MEDS: LEVOTHYROXINE 50 MCG TABLET (0.05 MG) PO SCH (05:33)
[2024-11-21 07:00] LABS: ALT/SGPT 17.0 U/L (7.0-40); AST/SGOT 30.0 U/L (<34); CALCIUM LEVEL 8.9 MG/DL (8.3-10.6); CARBON DIOXIDE LEVEL 20.0 MMOL/L (20-31); CHLORIDE LEVEL 107.0 MMOL/L (98-107); CREATININE FOR GFR 0.89 MG/DL (0.70-1.30); GLOMERULAR FILTRATION RATE 88.8 (>42); POTASSIUM SERUM 4.5 MMOL/L (3.5-5.1); SODIUM LEVEL 141.0 MMOL/L (136-145)
[2024-11-21 07:03] LABS: BASO # 0.1 10^3/uL (0.0-0.2); BASO % 1.1 % (0.0-1.0); EOS # 0.4 10^3/uL (0.0-0.5); EOS % 4.5 % (0.0-3.0); LYMPH # 0.9 10^3/uL (1.5-5.0); LYMPH % 11.2 % (24.0-44.0); MONO # 0.9 10^3/uL (0.0-0.8); MONO % 11.2 % (2.0-8.0); NEUTROPHILS # 5.8 10^3/uL (1.5-8.5); NEUTROPHILS % 71.6 % (36.0-66.0); PLATELET COUNT, AUTOMATED 143 10^3/uL (150-450)
[2024-11-21] MEDS: FERROUS SULFATE 325 MG TAB PO SCH (08:14)
[2024-11-21] MEDS: ASPIRIN 81 MG ENTERIC TABLET PO SCH (08:14)
[2024-11-21] MEDS: ENOXAPARIN 40 MG/0.4 ML SYRINGE (J1650 PER 10MG) SC SCH (08:15)
[2024-11-21] MEDS: MIRALAX *UNIT DOSE* 17 GM PACKET PO SCH (08:16)
[2024-11-21] MEDS: CETIRIZINE 10 MG TAB PO SCH (12:13)
[2024-11-21 12:17] VITALS: BP 127/88; TEMP 97.1; O2SAT 98
[2024-11-21 20:00] VITALS: BP 113/66; TEMP 97; O2SAT 97
[2024-11-22 04:00] VITALS: BP 127/59; TEMP 97.1; O2SAT 97
[2024-11-22] MEDS: FUROSEMIDE 20 MG TAB PO PRN (11:02)
[2024-11-22 11:42] VITALS: BP 133/77; TEMP 98.2; O2SAT 97
[2024-11-22 19:44] VITALS: BP 120/65; TEMP 98.7; O2SAT 98
[2024-11-23 03:36] VITALS: BP 121/75; TEMP 98.1; O2SAT 94
[2024-11-23 07:05] LABS: PLATELET COUNT, AUTOMATED 185 10^3/uL (150-450)
[2024-11-23] MEDS: BISACODYL 5 MG TAB PO ONE (11:42)
[2024-11-23] MEDS: SPIRONOLACTONE 12.5MG PER 1/2 TABLET PEG ONE (11:44)
[2024-11-23 12:00] VITALS: BP 130/68; TEMP 98.3; O2SAT 95
[2024-11-23 19:36] VITALS: BP 118/77; TEMP 98.7; O2SAT 98
[2024-11-24 03:37] VITALS: BP 126/65; TEMP 97.5; O2SAT 94
[2024-11-24] MEDS: SPIRONOLACTONE 12.5MG PER 1/2 TABLET PEG SCH (10:32)
[2024-11-24 12:00] VITALS: BP 128/66; TEMP 98.2; O2SAT 100
[2024-11-24 12:44] LABS: BASO # 0.1 10^3/uL (0.0-0.2); BASO % 1.4 % (0.0-1.0); EOS # 0.2 10^3/uL (0.0-0.5); EOS % 4.2 % (0.0-3.0); LYMPH # 0.7 10^3/uL (1.5-5.0); LYMPH % 11.8 % (24.0-44.0); MONO # 0.7 10^3/uL (0.0-0.8); MONO % 12.0 % (2.0-8.0); NEUTROPHILS # 4.0 10^3/uL (1.5-8.5); NEUTROPHILS % 70.2 % (36.0-66.0); PLATELET COUNT, AUTOMATED 197 10^3/uL (150-450)
[2024-11-24 13:07] LABS: CALCIUM LEVEL 8.3 MG/DL (8.3-10.6); CARBON DIOXIDE LEVEL 24.0 MMOL/L (20-31); CHLORIDE LEVEL 105.0 MMOL/L (98-107); CREATININE FOR GFR 0.96 MG/DL (0.70-1.30); GLOMERULAR FILTRATION RATE 81.9 (>42); POTASSIUM SERUM 4.3 MMOL/L (3.5-5.1); SODIUM LEVEL 140.0 MMOL/L (136-145)
[2024-11-24 19:45] VITALS: BP 134/79; TEMP 97.3; O2SAT 100
[2024-11-25 03:40] VITALS: BP 116/64; TEMP 97.7; O2SAT 99
[2024-11-25] MEDS: SPIRONOLACTONE 25 MG TAB PO SCH (08:29)
[2024-11-25 12:02] VITALS: BP 132/63; TEMP 97.5; O2SAT 98
[2024-11-25 20:00] VITALS: BP 124/70; TEMP 98.2; O2SAT 98
[2024-11-26 04:00] VITALS: BP 136/67; TEMP 98.7; O2SAT 98
[2024-11-26] MEDS: BISACODYL 5 MG TAB PO PRN (09:33)
[2024-11-26 11:41] VITALS: BP 127/67; TEMP 98.6; O2SAT 97
[2024-11-26 20:00] VITALS: BP 135/69; TEMP 98.3; O2SAT 97
[2024-11-26] MEDS: MOM 30 ML SUSPENSION UDC PO PRN (21:25)
[2024-11-27 04:00] VITALS: BP 131/70; TEMP 97.8; O2SAT 98
[2024-11-27] MEDS: TORSEMIDE 20 MG TAB PO ONE (06:36)
[2024-11-27 11:44] VITALS: BP 128/61; TEMP 97; O2SAT 97
[2024-11-27 20:05] VITALS: BP 126/65; TEMP 97.4; O2SAT 97
[2024-11-28 03:10] VITALS: BP 138/69; TEMP 97.4; O2SAT 98
[2024-11-28 12:00] VITALS: BP 111/60; TEMP 98.1; O2SAT 98
[2024-11-28 19:22] VITALS: BP 112/65; TEMP 98.4; O2SAT 70
[2024-11-29 03:30] VITALS: BP 139/67; TEMP 97.3; O2SAT 98
[2024-11-29] MEDS: SIMETHICONE 80MG CHEW TAB PO PRN (07:56)
[2024-11-29 12:00] VITALS: BP 130/70; TEMP 97.6; O2SAT 98
[2024-11-29 19:11] VITALS: BP 111/61; TEMP 97.6; O2SAT 99
[2024-11-30 00:07] VITALS: BP 140/72; TEMP 97.8; O2SAT 97
[2024-11-30 04:00] VITALS: BP 133/66; TEMP 97.8; O2SAT 99
[2024-11-30 08:11] VITALS: BP 137/78; TEMP 97; O2SAT 98
[2024-11-30 11:25] VITALS: BP 131/64; TEMP 97.9; O2SAT 94
[2024-11-30 20:05] VITALS: BP 126/71; TEMP 97.5; O2SAT 97
[2024-12-01 04:58] VITALS: BP 145/74; TEMP 97.7; O2SAT 95
[2024-12-01 11:53] VITALS: BP 132/65; TEMP 97.7; O2SAT 99
[2024-12-01 19:40] VITALS: BP 122/65; TEMP 97.8; O2SAT 98
[2024-12-02 03:23] VITALS: BP 138/63; TEMP 96.8; O2SAT 94
[2024-12-02 11:36] VITALS: BP 123/58; TEMP 97.7; O2SAT 96
[2024-12-02] MEDS: TORSEMIDE 20 MG TAB PO ONE (12:12)
[2024-12-02] MEDS ORDERED: COLA100C5 PO (15:32)
[2024-12-02] MEDS ORDERED: SENN18TA PO (15:32)
[2024-12-02] MEDS ORDERED: ALDA25TA2 PO (15:32)
[2024-12-02] MEDS ORDERED: MIRA33506 PO (15:32)
[2024-12-02] MEDS ORDERED: OXYC-517 PO (15:32)
[2024-12-02] MEDS ORDERED: ACET-683 PO (15:32)
[2024-12-02 19:57] VITALS: BP 140/71; TEMP 98.9; O2SAT 94
[2024-12-03 05:00] VITALS: BP 132/84; TEMP 98.6; O2SAT 96
[2024-12-03 07:16] LABS: PLATELET COUNT, AUTOMATED 324 10^3/uL (150-450)
[2024-12-03 07:34] LABS: CALCIUM LEVEL 8.9 MG/DL (8.3-10.6); CARBON DIOXIDE LEVEL 26.0 MMOL/L (20-31); CHLORIDE LEVEL 102.0 MMOL/L (98-107); CREATININE FOR GFR 1.08 MG/DL (0.70-1.30); GLOMERULAR FILTRATION RATE 71.1 (>42); POTASSIUM SERUM 4.3 MMOL/L (3.5-5.1); SODIUM LEVEL 141.0 MMOL/L (136-145)
[2024-12-03 08:31] VITALS: BP 122/82
[2024-12-03] MEDS ORDERED: TORS20TA2 PO (10:33)
== END 2024-12-03 12:50 | disposition home health service (06) | DRG 561 ==
LOC: M PM&R 17:48
PROVIDERS: ADMIT Physical Medicine & Rehabilitation; ATTEND Physical Medicine & Rehabilitation
DX: S72.141D Displaced intertrochanteric fracture of right femur, subsequent encounter for closed fracture with routine healing (principal); I48.0 Paroxysmal atrial fibrillation; I25.10 Atherosclerotic heart disease of native coronary artery without angina pectoris; E11.9 Type 2 diabetes mellitus without complications; I10 Essential (primary) hypertension; E78.5 Hyperlipidemia, unspecified; E03.9 Hypothyroidism, unspecified; D50.9 Iron deficiency anemia, unspecified; R60.9 Edema, unspecified; Z74.1 Need for assistance with personal care; Z74.09 Other reduced mobility; Z95.5 Presence of coronary angioplasty implant and graft; Z95.0 Presence of cardiac pacemaker; Z90.49 Acquired absence of other specified parts of digestive tract; Z79.82 Long term (current) use of aspirin; Z79.890 Hormone replacement therapy; Z79.899 Other long term (current) drug therapy; Z88.6 Allergy status to analgesic agent; Z86.73 Personal history of transient ischemic attack (TIA), and cerebral infarction without residual deficits; Z85.46 Personal history of malignant neoplasm of prostate; Z92.3 Personal history of irradiation

== ENCOUNTER → 2024-12-09 | Outpatient (CLI) | payer MEDICARE, OTHER ==
[~2024-12-09] MED LIST changes: +ACET-683 PO; +ALDA25TA2 PO; +COLA100C5 PO; +MIRA33506 PO; +OXYC-517 PO; +OXYC1TAB23 PO; +SENN18TA PO; +TORS20TA2 PO
== END ==
LOC: M SOG 06:56
PROVIDERS: ATTEND Physician Assistant
DX: S72.141A Displaced intertrochanteric fracture of right femur, initial encounter for closed fracture (principal); M16.11 Unilateral primary osteoarthritis, right hip

== ENCOUNTER → 2025-02-03 | Outpatient (CLI) | payer MEDICARE, OTHER ==
[~2025-02-03] MED LIST changes: -EZET10TA21; +EZET10TA57
== END ==
LOC: M SOG 07:36
PROVIDERS: ATTEND Physician Assistant
DX: S72.141D Displaced intertrochanteric fracture of right femur, subsequent encounter for closed fracture with routine healing (principal)

== ENCOUNTER → 2025-02-16 | Outpatient (REF) | payer MEDICARE, OTHER ==
[2025-02-16 14:58] LABS: IRON (FE) 78.0 UG/DL (65-175); PERCENT SATURATION 25.3 % (19.7-50.0)
== END ==
LOC: M LAB REF 13:35
PROVIDERS: ATTEND Family Medicine
DX: D50.9 Iron deficiency anemia, unspecified (principal)

== ENCOUNTER → 2025-04-09 | Outpatient (CLI) | payer MEDICARE, OTHER | LOC: M PLALAB 13:46 | PROVIDERS: ATTEND General Practice | DX: C61 Malignant neoplasm of prostate (principal) ==

== ENCOUNTER → 2025-04-20 | Outpatient (CLI) | payer MEDICARE, OTHER | LOC: M ONCR 10:52 | PROVIDERS: ATTEND General Practice | DX: C61 Malignant neoplasm of prostate (principal); Z92.29 Personal history of other drug therapy; Z92.3 Personal history of irradiation; R29.6 Repeated falls; Z88.8 Allergy status to other drugs, medicaments and biological substances; Z79.82 Long term (current) use of aspirin; Z79.899 Other long term (current) drug therapy; Z79.85 Long-term (current) use of injectable non-insulin antidiabetic drugs ==